=== PATIENT | female | born 1990 | race Caucasian/White ===

== ENCOUNTER → 2019-04-08 | Outpatient (CLI) | payer OTHER ==
--- NOTE | 2019-04-09 10:29 | MM ---
Reason for exam: clinical finding. Last mammogram was performed 6 years and 7 months ago. History: Patient is nulliparous. Family history of breast cancer in maternal grandmother. Right U/S Cancelled VAD Biopsy of both breasts, September 23, 2012. Taking hormonal contraceptives for 1 year. Physical Findings: Nurse did not find any significant physical abnormalities on exam. MG 3D Diag Mammo W/Cad JOSELIN Bilateral CC and MLO view(s) were taken. Prior study comparison: September 18, 2012, CAD bilateral diagnostic mammogram. There are scattered fibroglandular densities. There is a circumscribed left mass of the lower inner quadrant at anterior depth. Benign appearing bilateral calcifications. These results were verbally communicated with the patient and result sheet given to the patient on 04/08/19. ASSESSMENT: Suspicious, BI-RAD 4 RECOMMENDATION: Ultrasound core biopsy of both breasts. Called with mammographic findings and has scheduled an appointment for the patient for 05/15/19 at 1:[address] Good. Biopsy scheduled for 04/27/19. PRELIMINARY REPORT CALLED AND FAXED TO DR. GOOD ON 04/09/19.
--- NOTE | 2019-04-09 10:33 | USB ---
Reason for exam: clinical finding. History: Patient is nulliparous. Family history of breast cancer in maternal grandmother. Right U/S Cancelled VAD Biopsy of both breasts, September 23, 2012. Taking hormonal contraceptives for 1 year. US Breast Limited BILAT Right limited breast ultrasound including focal area of concern, retroareolar and axilla demonstrates a 3.1 x 3.0 x 1.3cm oval, solid, isoechoic, vascular lesion at 12 o'clock interval growth, biopsy recommended and a 1.5 x 1.8 x 0.6cm oval, mixed lesion at 1 o'clock possible fat necrosis, short term follow up recommended. Left limited breast ultrasound including focal area of concern, retroareolar and axilla demonstrates a 2.8 x 2.5 x 0.9cm oval, mixed lesion at 10 o'clock, new, suspicious, biopsy recommended and a 1.2 x 1.0 x 0.7cm node at the axilla. These results were verbally communicated with the patient and result sheet given to the patient on 04/08/19. ASSESSMENT: Suspicious, BI-RAD 4 RECOMMENDATION: Ultrasound core biopsy of both breasts. Called with mammographic findings and has scheduled an appointment for the patient for 05/15/19 at 1:[address] Good. Biopsy scheduled for 04/27/19. PRELIMINARY REPORT CALLED AND FAXED TO DR. GOOD ON 04/09/19.
== END | disposition home or self-care (01) ==
LOC: RADMAMWWP 10:01
PROVIDERS: ATTEND Internal Medicine
DX: N63.20 Unspecified lump in the left breast, unspecified quadrant (principal)
CPT/HCPCS: 77066; 76642; G0279; 77062

== ENCOUNTER → 2019-04-29 | Day surgery (SDC) | payer OTHER ==
[2019-04-29 13:23] VITALS: RESP 16; TEMP 98.9; BMI 49.1
[2019-04-29 14:45] VITALS: BP 121/79; PULSE 89
--- NOTE | 2019-04-29 16:20 | USB ---
EXAMINATION TYPE: US biopsy breast VAD RT DATE OF EXAM: 04/29/2019 CLINICAL HISTORY: R92.8, ABNORMAL MAMMO. TECHNIQUE: Ultrasound guided core biopsy of bilateral breasts. COMPARISON: 10/17/2015 FINDINGS: The procedure of ultrasound guided core biopsy was explained to the patient. Benefits, alternatives, and risks were discussed. An informed consent was then obtained. Timeout was performed. Right breast biopsy: The patient was placed in supine positioning for imaging and for the procedure. The overlying skin was prepped with Betadine and draped in usual sterile fashion. Lidocaine was used as anesthetic into the skin and subcutaneous tissue up to area of concern in the right breast. A erik was made with surgical scalpel. Under ultrasound guidance, a 12-gauge vacuum assisted biopsy gun device was used to obtain 5 core samples. Following this, a biopsy clip was left in lesion. Good hemostasis was obtained with direct pressure. A completely new set up was performed for biopsy of the left breast. Left breast biopsy: The patient was placed in supine positioning for imaging and for the procedure. The overlying skin was prepped with Betadine and draped in usual sterile fashion. Lidocaine was used as anesthetic into the skin and subcutaneous tissue up to area of concern in the left breast. A erik was made with surgical scalpel. Under ultrasound guidance, a 12-gauge vacuum assisted biopsy gun device was used to obtain 5 core samples. Following this, a biopsy clip was left in lesion. The patient tolerated the procedure well without any immediate complication. Good hemostasis was obtained with direct pressure. Discharge instructions were discussed with the patient. Patient was transferred to mammography for post procedure mammogram for clip placement documentation. Mammogram: Ribbon clips are present within the bilateral breasts at biopsy sites. IMPRESSION: 1. Successful bilateral ultrasound-guided core biopsies. Recommendations: 1. Recommendations are pending pathology results of two site biopsy. Pathology Results: Benign A. RIGHT BREAST AT TWELVE O'CLOCK, NEEDLE CORE BIOPSIES: Fibroadipose tissue consistent with intramammary lipoma. B. LEFT BREAST AT TEN O'CLOCK, NEEDLE CORE BIOPSIES: Fibroadipose tissue with fat necrosis. Breast parenchyma is not identified. Recommendation Follow up mammogram of both breasts in 6 months. CAROL
--- NOTE | 2019-04-30 09:10 | MM ---
Reason for exam: additional evaluation requested from abnormal screening. Last mammogram was performed 1 month ago. History: Patient is nulliparous. Family history of breast cancer in maternal grandmother. Right U/S Cancelled VAD Biopsy of both breasts, September 23, 2012. Taking hormonal contraceptives for 1 year. MG Diagnostic Debra BI Wo CAD Bilateral CC and LM view(s) were taken. Prior study comparison: April 08, 2019, bilateral MG 3d diag mammo w/cad JOSELIN. September 18, 2012, CAD bilateral diagnostic mammogram. ASSESSMENT: Post procedure mammogram for marker placement RECOMMENDATION: Ultrasound of both breasts in 6 months. PENDING PATHOLOGY RESULTS.
== END | disposition home or self-care (01) ==
LOC: RADUSWWP 13:01
PROVIDERS: ATTEND Surgery
DX: N60.11 Diffuse cystic mastopathy of right breast (principal); N60.12 Diffuse cystic mastopathy of left breast; Z80.3 Family history of malignant neoplasm of breast
CPT/HCPCS: 19083; 88305; 77066; A4648; J2001

== ENCOUNTER → 2019-05-07 | Outpatient (CLI) | payer OTHER ==
[2019-05-07 12:00] VITALS: BP 146/108; PULSE 118; RESP 18; TEMP 98.3; BMI 49.1
--- NOTE | 2019-05-07 13:01 | P.GSHP ---
History of Present Illness H&P Date: 05/07/19 Chief Complaint: core biopsy of both breast The patient is a 28-year-old white female who presents with bilateral palpable breast masses. She subsequently underwent a bilateral mammogram performed on 730 119. This revealed a circumscribed left breast mass of the lower inner quadrant and anterior depth. Benign calcifications were noted bilaterally. She additionally had an ultrasound of both breast and it was recommended she have bilateral ultrasound-guided core biopsies. The biopsies revealed in the right breast at 12:00 fibroadipose tissue consistent with him 12 mm lipoma. In the left breast at 10:00 fibroadipose tissue consistent with fat necrosis. The avinash ent is able to still fill the areas of palpable change. The patient has left breast ecchymosis. She has no complaints otherwise related to the biopsies. Patient has no history of any trauma to her breast prior to the biopsies. Family history: 1. maternal grandmother: brain cancer 2. maternal aunt: ovarian cancer 3. paternal grandmother: skin cancer Hormonal history: Menarche: 8 G0 periods regular BCP: used to regulate periods, has polycystic ovarian disease hormones: none Surgical history: 1.eye surgery Past Medial History: 1. Polycystic ovarian disease Social history: Smoke: Occasional Alcohol: Occasional Drugs:none - Constitutional Constitutional: Denies chills, Denies fever - EENT Eyes: denies blurred vision, denies pain Ears: deny: decreased hearing, tinnitus Ears, nose, mouth and throat: Denies headache, Denies sore throat - Breasts Breasts: bilateral: as per HPI - Cardiovascular Cardiovascular: Reports high blood pressure - Respiratory Respiratory: Denies cough, Denies 7 - Gastrointestinal Comment: IBSD Gastrointestinal: Denies abdominal pain, Denies diarrhea, Denies nausea, Denies vomiting - Genitourinary (Female) Genitourinary: Denies dysuria, Denies hematuria - Menstruation Comment: on BCP, polycystic ovarian disease Menstruation: Reports period normal - Musculoskeletal Musculoskeletal: Denies myalgias - Integumentary Integumentary: Denies pruritus, Denies rash - Neurological Neurological: Denies numbness, Denies weakness - Psychiatric Psychiatric: Denies anxiety, Denies depression - Endocrine Comment: hypothyroid - Hematologic/Lymphatic Comment: none - Allergic/Immunologic Allergic/Immunologic: Reports seasonal allergies Past Medical History Past Medical History: Hypertension, Thyroid Disorder Additional Past Medical History / Comment(s): POLYCYSTIC OVARIAN SYNDROME, HX OF RECTAL BLEEDING., STATES HX OF MRSA 2009 ON CHEEK,LEG AND BREAST., HX OF C-DIFF (OCT 2012). History of Any Multi-Drug Resistant Organisms: None Reported, MRSA Date of last positivie culture/infection: 2008 MDRO Source:: 2008 Additional Past Surgical History / Comment(s): JOSELIN EYE SURGERY AT 9 MONTHS AND 9 YRS OLD, 2014 Past Anesthesia/Blood Transfusion Reactions: No Reported Reaction Past Psychological History: Anxiety Additional Psychological History / Comment(s): history of anxiety, not current Smoking Status: Former smoker Past Alcohol Use History: Occasional Additional Past Alcohol Use History / Comment(s): SMOKING 1-2 CIGARETTES PER DAY-TRYING TO QUIT. Past Drug Use History: None Reported - Past Family History Father Family Medical History: Hypertension Additional Family Medical History / Comment(s): Grandmother skin CA Medications and Allergies Home Medications Medication Instructions Recorded Confirmed Type Levothyroxine Sodium [Levoxyl] 125 mcg PO DAILY 04/12/15 05/07/19 History metFORMIN HCL [Glucophage] 1,000 mg PO BID 04/12/15 05/07/19 History Tri Previfem ( Control) 1 tab PO DAILY 06/10/15 05/07/19 History Lisinopril [Zestril] 5 mg PO DAILY 04/14/19 05/07/19 History Allergies Allergy/AdvReac Type Severity Reaction Status Date / Time clindamycin Allergy C-DIFF Verified 05/07/19 12:01 vancomycin Allergy ITCHING, Verified 05/07/19 12:01 HIVES, RED SKIN Surgical - Exam Vital Signs Temp Pulse Resp BP Pulse Ox 98.3 F 118 H 18 146/108 96 05/07/19 11:57 05/07/19 11:57 05/07/19 11:57 05/07/19 11:57 05/07/19 11:57 BMI 49.1 - General well developed, well nourished, no distress - Eyes normal ocular movement - ENT no hearing loss, no congestion - Neck no masses, trachea midline - Respiratory normal respiratory effort, clear to auscultation - Cardiovascular Rhythm: regular Heart Sounds: normal: S1, S2 - Abdomen Abdomen: soft, non tender, no guarding, no rigid, no rebound - Integumentary normal turgor - Neurologic no disoriented, no combative - Musculoskeletal normal gait, normal posture - Psychiatric oriented to time, oriented to person, oriented to place, speech is normal, memory intact breast exam: Right breast: Multiple positional exam increased nodularity at site of biopsy consistent with a lipoma in the upper outer quadrant area of the breast fibrocystic changes Right axilla: No adenopathy of concern Left breast: Multiple positional exam fibrocystic changes, at the 8 o'clock position there is an area of increased nodularity. Biopsy of this area did not reveal any breast tissue but did show some changes consistent with fat necrosis Left axilla: No adenopathy of concern Results Mammogram and ultrasound reviewed with radiology Assessment and Plan Assessment: Impression: Bilateral palpable breast changes Ultrasound abnormalities bilateral Hypertension obesity Polycystic ovarian disease The patient has bilateral palpable breast changes. She understands that the core biopsy results were benign and by believed to correspond to the palpable abnormalities. However the lipoma has increased in size at times it is painful and she wishes this to be excised. The lesion on the left is Its presentation and is painful. This is changed in size as well. She wishes this to be excised as well. Again she understands that these are not cancer these are not pre-cancer that they are causing her anxiety. The risks and benefits of the procedure including bleeding and infection reaction to the anesthetic had been discussed she understands and wishes to proceed and this will be scheduled in the near future. Plan: 1. excision of bilateral palpable breast lesions 2. repeat bilateral ultrasound in 6 months to follow the other ultrasound changes 3. HTN 4. medical managment of medical conditions CC: Dr. Javier Jc
== END | disposition home or self-care (01) ==
LOC: WWCWWP 11:51
PROVIDERS: ATTEND Surgery
DX: Z53.9 Procedure and treatment not carried out, unspecified reason (principal)

== ENCOUNTER → 2019-06-25 | Outpatient (CLI) | payer OTHER ==
[2019-06-25 13:41] VITALS: BP 143/94; PULSE 107; RESP 20; TEMP 99.1; BMI 49.1
--- NOTE | 2019-06-25 13:50 | P.PN ---
Subjective Progress Note Date: 06/25/19 Principal diagnosis: bilateral breast masses The patient is a 28-year-old white female who presents with bilateral palpable breast masses. She subsequently underwent a bilateral mammogram performed on 730 119. This revealed a circumscribed left breast mass of the lower inner quadrant and anterior depth. Benign calcifications were noted bilaterally. She additionally had an ultrasound of both breast and it was recommended she have bilateral ultrasound-guided core biopsies. The biopsies revealed in the right breast at 12:00 fibroadipose tissue consistent with him 12 mm lipoma. In the left breast at 10:00 fibroadipose tissue consistent with fat necrosis. The patient is able to still fill the areas of palpable change. The patient has left breast ecchymosis. She has no complaints otherwise related to the biopsies. Patient has no history of any trauma to her breast prior to the biopsies. Family history: 1. maternal grandmother: brain cancer 2. maternal aunt: ovarian cancer, of this 3. paternal grandmother: skin cancer Hormonal history: Menarche: 8 G0 periods regular BCP: used to regulate periods, has polycystic ovarian disease hormones: none Surgical history: 1.eye surgery Past Medial History: 1. Polycystic ovarian disease Social history: Smoke: Occasional Alcohol: Occasional Drugs:none - Constitutional Constitutional: Denies chills, Denies fever - EENT Eyes: denies blurred vision, denies pain Ears: deny: decreased hearing, tinnitus Ears, nose, mouth and throat: Denies headache, Denies sore throat - Breasts Breasts: bilateral: as per HPI - Cardiovascular Cardiovascular: Reports high blood pressure - Respiratory Respiratory: Denies cough, Denies 7 - Gastrointestinal Comment: IBSD Gastrointestinal: Denies abdominal pain, Denies diarrhea, Denies nausea, Denies vomiting - Genitourinary (Female) Genitourinary: Denies dysuria, Denies hematuria - Menstruation Comment: on BCP, polycystic ovarian disease Menstruation: Reports period normal - Musculoskeletal Musculoskeletal: Denies myalgias - Integumentary Integumentary: Denies pruritus, Denies rash - Neurological Neurological: Denies numbness, Denies weakness - Psychiatric Psychiatric: Denies anxiety, Denies depression - Endocrine Comment: hypothyroid - Hematologic/Lymphatic Comment: none - Allergic/Immunologic Allergic/Immunologic: Reports seasonal allergies Past Medical History Past Medical History: Hypertension, Thyroid Disorder Additional Past Medical History / Comment(s): POLYCYSTIC OVARIAN SYNDROME, HX OF RECTAL BLEEDING., STATES HX OF MRSA 2009 ON CHEEK,LEG AND BREAST., HX OF C-DIFF (OCT 2012). History of Any Multi-Drug Resistant Organisms: None Reported, MRSA Date of last positivie culture/infection: 2008 MDRO Source:: 2008 Additional Past Surgical History / Comment(s): JOSELIN EYE SURGERY AT 8 MONTHS AND 9 YRS OLD, 2014 Past Anesthesia/Blood Transfusion Reactions: No Reported Reaction Past Psychological History: Anxiety Additional Psychological History / Comment(s): history of anxiety, not current Smoking Status: Former smoker Past Alcohol Use History: Occasional Additional Past Alcohol Use History / Comment(s): SMOKING 1-2 CIGARETTES PER DAY-TRYING TO QUIT. Past Drug Use History: None Reported Objective - Vital Signs Vital signs: Vital Signs Temp 99.1 F 06/25/19 13:37 Pulse 107 H 06/25/19 13:37 Resp 20 06/25/19 13:37 BP 143/94 06/25/19 13:37 Pulse Ox 96 06/25/19 13:37 Intake & Output 06/24/19 06/25/19 06/25/19 18:59 06:59 18:59 Weight 117.934 kg - Exam BMI 49.1 - Constitutional Constitutional Comment(s): BMI 49.1 General appearance: Present: morbidly obese - EENT Eyes: Present: EOMI ENT: Present: hearing grossly normal - Neck Neck: Present: normal ROM - Respiratory Respiratory: bilateral: CTA - Cardiovascular Rhythm: regular Heart sounds: normal: S1, S2 - Gastrointestinal General gastrointestinal: Present: soft - Integumentary Integumentary: Present: normal turgor - Musculoskeletal Musculoskeletal: Present: gait normal - Psychiatric Psychiatric: Present: A&O x's 3, appropriate affect, intact judgment & insight - Additional findings Additional findings: Breast examination: Right breast: Multi-positional exam increased nodularity at site of biopsy consistent with a lipoma, in the upper outer quadrant of the breast fibrocystic changes Right axilla: No adenopathy of concern Left breast: Multi-positional exam fibrocystic changes, bradycardic position and area of increased nodularity, biopsy of this area did not reveal breast tissue but did show some changes consistent with fat necrosis Left axilla: No adenopathy of concern bilateral nipple piercing Assessment and Plan Assessment: Impression: 1. Bilateral palpable breast changes 2. Ultrasound abnormalities bilateral 3. Hypertension 4. Obesity 5. Polycystic ovarian disease The patient has bilateral palpable breast changes. She understands of the core biopsy results were benign and believed to correspond to the palpable abnormality maladies. However the lipoma has increased in size at times is painful to wishes this to be excised. The lesion on the left is painful as well. This is also changed in size. Again she understands these and I cancer that these are not precancer and they are however causing her anxiety. The risks and benefits of the procedure including bleeding and infection possible reaction to the anesthetic were discussed with the patient she understands and wishes to proceeds. Plan: 1. Excision of bilateral palpable breast lesions 2. Repeat bilateral ultrasound in 6 months to follow other ultrasound changes 2. Hypertension/ medical management CC: Dr. Jc
== END | disposition home or self-care (01) ==
LOC: WWCWWP 13:19
PROVIDERS: ATTEND Surgery
DX: Z53.9 Procedure and treatment not carried out, unspecified reason (principal)

== ENCOUNTER 2019-07-07 07:24 | Day surgery (SDC) | payer OTHER ==
[2019-07-02 12:00] VITALS: BMI 49.1
[~2019-07-07 07:24] MED LIST: DEXAMETHASONE SOD PHOSPHATE 10 MG/ML 1 ML VIAL IV ONE; HEPARIN SODIUM,PORCINE 5,000 UNIT/ML 1 ML VIAL SQ ONE; LACTATED RINGERS 1,000 ML IV SCH; LIDOCAINE 1% 20 ML VIAL (10MG/ML) FOR IV START INTRADERMA PRN; MIDAZOLAM 2 MG/2 ML VIAL IV PRN; ONDANSETRON 4 MG/2 ML VIAL IVP ONE; SCOPOLAMINE 1.5MG/72HR PATCH TRANSDERM ONE
[2019-07-07 08:23] LABS: Glucose,Whole Blood 138 mg/dL (75-99)
[2019-07-07] MEDS ORDERED: MIDAZOLAM 2 MG/2 ML VIAL ONE (08:34)
[2019-07-07] MEDS ORDERED: fentaNYL (PF) 50 MCG/ML 2 ML AMP ONE (08:34)
[2019-07-07] MEDS ORDERED: LIDOCAINE 1% INJ 10MG/ML (20 ML MDV) ONE (08:34)
[2019-07-07] MEDS ORDERED: SUCCINYLCHOLINE CHLORIDE 100 MG/5 ML SYR IV ONE (08:34)
[2019-07-07] MEDS ORDERED: PROPOFOL 10 MG/ML 20 ML VIAL IV ONE (08:34)
[2019-07-07] MEDS ORDERED: HEPARIN SODIUM,PORCINE 5,000 UNIT/ML 1 ML VIAL SQ ONE (08:53)
[2019-07-07] MEDS ORDERED: LIDOCAINE (PF) 10 MG/ML 2 ML VIAL SQ ONE (09:06)
--- NOTE | 2019-07-07 09:40 | P.OP ---
Date of Procedure: 07/07/19 Preoperative Diagnosis: Symptomatic Masses right and left breast core biopsy proven benign, right breast lipoma, left breast fat necrosis causing anxiety for the patient Postoperative Diagnosis: Same Procedure(s) Performed: Excisional biopsy bilateral palpable masses in the breast Anesthesia: RASHEED Surgeon: Peyton Good Estimated Blood Loss (ml): 5 IV fluids (ml): 600 Pathology: other (Bilateral breast tissue) Condition: stable Disposition: same day Indications for Procedure: Symptomatic bilateral palpable breast masses, increased in size Operative Findings: Lipoma right breast, dense probable fat necrosis left breast Description of Procedure: The patient was taken to the operating room and following induction of anesthesia the right and left breast were prepped and draped in a sterile fashion. The left breast was approached initially. A small incision was made over the palpable abnormality and carried down around the area. The tissue excised was approximately 6 cm x 6 cm, palpation revealed the density to this and an additional 5 x 5 cm area of tissue was excised. The palpable mass was believed to be in the specimen. This is most likely consistent with fat necrosis, and lobulated breast tissue. The wound was well irrigated. The deep tissues were closed using 3-0 Vicryl suture. The skin was closed using 4-0 Monocryl. The right breast was approached. An incision over the palpable abnormality was made. An encapsulated lipomatous like lesion was removed. This lesion was approximately 3 cm x 3 cm in size. Following this the wound was well irrigated. The skin was closed using a 4-0 Monocryl. This was done after being sure that hemostasis was attained using electrocautery device. The specimens were painted for orientation. All instrument and sponge counts were correct at the end of the case. The patient tolerated the procedure in stable condition.
--- NOTE | 2019-07-07 09:42 | P.DS ---
Providers Attending physician: Peyton Good Primary care physician: Javier Jc Plan - Discharge Summary Discharge Rx Participant: Yes New Discharge Prescriptions: No Action metFORMIN HCL [Glucophage] 1,000 mg PO HS Levothyroxine Sodium [Levoxyl] 125 mcg PO QAM Tri Previfem ( Control) 1 tab PO DAILY Lisinopril [Zestril] 5 mg PO QAM Discharge Medication List Levothyroxine Sodium [Levoxyl] 125 mcg PO QAM 04/12/15 [History] metFORMIN HCL [Glucophage] 1,000 mg PO HS 04/12/15 [History] Tri Previfem ( Control) 1 tab PO DAILY 06/10/15 [History] Lisinopril [Zestril] 5 mg PO QAM 04/14/19 [History] Follow up Appointment(s)/Referral(s): Peyton Good MD [STAFF PHYSICIAN] - 1 Week Activity/Diet/Wound Care/Special Instructions: Do not drive today Patient may shower after 48 hours Wear support bra Until seen by Dr. Oswald Discharge Disposition: HOME SELF-CARE
[2019-07-07 10:00] VITALS: TEMP 97.1
[2019-07-07] MEDS: HYDROmorphone 0.5 MG/0.5 ML SYRINGE IVP PRN ×2 (10:12→10:31)
[2019-07-07] MEDS ORDERED: SODIUM CHLORIDE 0.9% 1,000 ML IV ONE ×2 (10:20)
[2019-07-07 10:34] VITALS: RESP 18
[2019-07-07 11:25] VITALS: BP 129/81; PULSE 100
== END 2019-07-07 11:36 | disposition home or self-care (01) ==
LOC: OR 07:24
PROVIDERS: ATTEND Surgery
DX: D17.39 Benign lipomatous neoplasm of skin and subcutaneous tissue of other sites (principal); N64.1 Fat necrosis of breast; I10 Essential (primary) hypertension; E07.9 Disorder of thyroid, unspecified; E28.2 Polycystic ovarian syndrome; F31.9 Bipolar disorder, unspecified; F17.210 Nicotine dependence, cigarettes, uncomplicated; Z86.14 Personal history of Methicillin resistant Staphylococcus aureus infection; Z86.19 Personal history of other infectious and parasitic diseases; E66.01 Morbid (severe) obesity due to excess calories; Z68.42 Body mass index [BMI] 45.0-49.9, adult; Z80.41 Family history of malignant neoplasm of ovary; Z80.8 Family history of malignant neoplasm of other organs or systems; Z79.84 Long term (current) use of oral hypoglycemic drugs; Z79.3 Long term (current) use of hormonal contraceptives; Z79.890 Hormone replacement therapy; Z79.899 Other long term (current) drug therapy; Z88.1 Allergy status to other antibiotic agents
CPT/HCPCS: 94660; 81025; 88305; 19120; J2250; J2001 ×2; J1644; J1100; J2405; J3010; J0330; J2704; J1170

== ENCOUNTER 2021-06-29 20:56 | Emergency (ER) | payer OTHER ==
[2021-06-29 21:02] VITALS: BP 101/70; PULSE 83; RESP 20; TEMP 97.9
--- NOTE | 2021-06-29 22:13 | ED ---
General Adult HPI - General Chief complaint: GI Bleed Stated complaint: Rectal Bleeding Time Seen by Provider: 06/29/21 21:53 Source: patient, family, RN notes reviewed, old records reviewed Mode of arrival: ambulatory Limitations: no limitations - History of Present Illness Initial comments: This is a well-appearing 30-year-old female that presents to the emergency room complaining of one episode of bloody diarrhea at 2:00 today. She states that she could feel pressure in her rectum 5 out of 10 pain. The pain is gone at this time. She states that she has had this happen 7 years ago and she seen Dr. Pedroza and had an colonoscopy and was told that she had a rectal fissure. She denies any abdominal pain nausea, vomiting or constipation. She has had a history of C. diff, hypertension, hypothyroidism and polycystic ovarian syndrome. Patient is a nonsmoker. -: hour(s) (8 hours ago) Severity scale (1-10): 0 Improves with: none Worsens with: none Associated Symptoms: denies other symptoms Treatments Prior to Arrival: none - Related Data Home Medications Medication Instructions Recorded Confirmed Levothyroxine Sodium [Levoxyl] 125 mcg PO QAM 04/12/15 07/02/19 metFORMIN HCL [Glucophage] 1,000 mg PO HS 04/12/15 07/02/19 Tri Previfem ( Control) 1 tab PO DAILY 06/10/15 07/02/19 lisinopriL [Zestril] 5 mg PO QAM 04/14/19 07/02/19 Allergies Allergy/AdvReac Type Severity Reaction Status Date / Time clindamycin Allergy C-DIFF Verified 06/29/21 21:03 vancomycin Allergy ITCHING, Verified 06/29/21 21:03 HIVES, RED SKIN Review of Systems ROS Statement: Those systems with pertinent positive or pertinent negative responses have been documented in the HPI. ROS Other: All systems not noted in ROS Statement are negative. Past Medical History Past Medical History: Hypertension, Thyroid Disorder Additional Past Medical History / Comment(s): POLYCYSTIC OVARIAN SYNDROME, HX OF RECTAL BLEEDING., STATES HX OF MRSA 2009 ON CHEEK,LEG AND BREAST., HX OF C-DIFF (OCT 2012). History of Any Multi-Drug Resistant Organisms: C-DIFF, MRSA Date of last positivie culture/infection: leg MDRO Source:: 2008 Additional Past Surgical History / Comment(s): JOSELIN EYE SURGERY AT 9 MONTHS AND 9 YRS OLD, 2014 Past Anesthesia/Blood Transfusion Reactions: No Reported Reaction Past Psychological History: Anxiety Smoking Status: Former smoker Past Alcohol Use History: Occasional Past Drug Use History: None Reported - Past Family History Father Family Medical History: Hypertension Additional Family Medical History / Comment(s): Grandmother skin [place] General Exam Limitations: no limitations General appearance: alert, in no apparent distress Head exam: Present: atraumatic, normocephalic, normal inspection Eye exam: Present: normal appearance, PERRL, EOMI. Absent: scleral icterus, conjunctival injection, periorbital swelling ENT exam: Present: normal exam, normal oropharynx, mucous membranes moist Neck exam: Present: normal inspection, full ROM. Absent: tenderness, meningismus, lymphadenopathy Respiratory exam: Present: normal lung sounds bilaterally. Absent: respiratory distress, wheezes, rales, rhonchi, stridor Cardiovascular Exam: Present: regular rate, normal rhythm, normal heart sounds. Absent: systolic murmur, diastolic murmur, rubs, gallop, clicks GI/Abdominal exam: Present: soft, normal bowel sounds. Absent: distended, tenderness, guarding, rebound, rigid, mass Rectal exam: Present: normal inspection, normal rectal tone. Absent: black stool, bloody stool, fecal impaction, hemorrhoids, mass, tenderness Extremities exam: Present: normal inspection, full ROM, normal capillary refill. Absent: tenderness, pedal edema, joint swelling, calf tenderness Back exam: Present: normal inspection, full ROM. Absent: tenderness, CVA tenderness (R), CVA tenderness (L), rash noted Neurological exam: Present: alert, oriented X3. Absent: motor sensory deficit Psychiatric exam: Present: normal affect, normal mood Skin exam: Present: warm, dry, intact, normal color. Absent: rash, cyanosis, diaphoretic Course Vital Signs 06/29/21 20:57 Temperature 97.9 F Pulse Rate 83 Respiratory 20 Rate Blood Pressure 101/70 O2 Sat by Pulse 100 Oximetry Medical Decision Making - Medical Decision Making Well-appearing female with stable vital signs. She has a history of having a rectal fissure in the past. She had one episode of bloody diarrhea, red in co valentin at 2:00 today. She has not had any subsequent bleeding. Her abdomen is soft and nontender. She has good rectal tone. Occult blood from recturm was sent and negative. She'll be directed to follow up with her primary care doctor and return with any new or worsening symptoms. Case discussed with Dr. Galaviz. - Lab Data Lab Results 06/29/21 Range/Units 22:40 Stool Occult Blood Negative (Negative) Disposition Clinical Impression: Rectal bleeding Disposition: HOME SELF-CARE Condition: Good Instructions (If sedation given, give patient instructions): Rectal Bleeding (ED) Additional Instructions: Return to the emergency room with any increase in bleeding, abdominal or rectal pain. Follow-up with her clinical account liaison and/or your primary care doctor next week. Is patient prescribed a controlled substance at d/c from ED?: No Referrals: Cuca Cantu MD [Primary Care Provider] - 1-2 days Time of Disposition: 22:12
== END 2021-06-29 22:43 | disposition home or self-care (01) ==
LOC: EC 20:56
DX: K62.5 Hemorrhage of anus and rectum (principal); I10 Essential (primary) hypertension; E07.9 Disorder of thyroid, unspecified; F41.9 Anxiety disorder, unspecified; Z88.1 Allergy status to other antibiotic agents; Z87.891 Personal history of nicotine dependence
CPT/HCPCS: 36415; 82272; 99284

== ENCOUNTER 2023-05-06 11:09 | Emergency (ER) | payer OTHER ==
[2023-05-06 11:17] VITALS: RESP 18; TEMP 99
[2023-05-06] MEDS ORDERED: SODIUM CHLORIDE 0.9% 2,000 ML IV STA (11:19)
[2023-05-06] MEDS ORDERED: KETOROLAC 15 MG/ML 1 ML VIAL IVP STA ×2 (11:25→12:46)
[2023-05-06] MEDS ORDERED: ONDANSETRON 4 MG/2 ML VIAL IVP STA (11:25)
[2023-05-06] MEDS ORDERED: DEXAMETHASONE SOD PHOSPHATE 10 MG/ML 1 ML VIAL IVP STA (11:25)
[2023-05-06 11:43] LABS: Basophils % (A) 0 %; Eosinophils # (A) 0.1 k/uL (0-0.7); Eosinophils % (A) 1 %; HGB 13.8 gm/dL (11.4-16.0); Lymphocytes # (A) 1.5 k/uL (1.0-4.8); Lymphocytes % (A) 12 %; MCH 30.3 pg (25.0-35.0); MCHC 34.4 g/dL (31.0-37.0); Mean Platelet Volume 7.7; Monocytes # (A) 0.3 k/uL (0-1.0); Monocytes % (A) 2 %; Neutrophils % (A) 84 %; Platelet Count 306 k/uL (150-450); RBC 4.54 m/uL (3.80-5.40); RDW 12.6 % (11.5-15.5); WBC 11.9 k/uL (3.8-10.6)
--- NOTE | 2023-05-06 11:43 | ED ---
Nausea/Vomiting/Diarrhea HPI - General Chief complaint: Nausea/Vomiting/Diarrhea Stated complaint: Dehydration Time Seen by Provider: 05/06/23 11:19 Source: patient, RN notes reviewed Mode of arrival: ambulatory Limitations: no limitations - History of Present Illness Initial comments: This is a 32-year-old female who presents to the emergency department for nausea and vomiting. States that the symptoms started 2.5 weeks ago after beginning Ozempic. She is concerned that she is becoming dehydrated, as she is unable to keep anything down. Denies any associated abdominal pain, aside from mild discomfort as a result of all of the nausea and vomiting. Yesterday she was doing housework, when she fell backwards and her head went through a wall. She since had a severe headache to the back of the head. Denies any visual changes or sustaining any loss of consciousness. Denies any fevers, chills, sore throat, cough, dyspnea, chest pain, palpitations, diarrhea, or back pain. MD complaint: nausea, vomiting - Related Data Home Medications Medication Instructions Recorded Confirmed Levothyroxine Sodium [Levoxyl] 125 mcg PO QAM 04/12/15 07/02/19 metFORMIN HCL [Glucophage] 1,000 mg PO HS 04/12/15 07/02/19 Tri Previfem ( Control) 1 tab PO DAILY 06/10/15 07/02/19 lisinopriL [Zestril] 5 mg PO QAM 04/14/19 07/02/19 Previous Rx's Medication Instructions Recorded Ondansetron Odt [Zofran Odt] 4 mg PO Q8HR PRN #30 tab 05/06/23 Allergies Allergy/AdvReac Type Severity Reaction Status Date / Time clindamycin Allergy C-DIFF Verified 05/06/23 11:12 vancomycin Allergy ITCHING, Verified 05/06/23 11:12 HIVES, RED SKIN Review of Systems ROS Statement: Those systems with pertinent positive or pertinent negative responses have been documented in the HPI. ROS Other: All systems not noted in ROS Statement are negative. Past Medical History Past Medical History: Hypertension, Thyroid Disorder Additional Past Medical History / Comment(s): POLYCYSTIC OVARIAN SYNDROME, HX OF RECTAL BLEEDING., STATES HX OF MRSA 2009 ON CHEEK,LEG AND BREAST., HX OF C-DIFF (OCT 2012). History of Any Multi-Drug Resistant Organisms: C-DIFF, MRSA Date of last positivie culture/infection: leg MDRO Source:: 2008 Additional Past Surgical History / Comment(s): JOSELIN EYE SURGERY AT 9 MONTHS AND 9 YRS OLD, 2014 Past Anesthesia/Blood Transfusion Reactions: No Reported Reaction Past Psychological History: Anxiety Smoking Status: Former smoker Past Alcohol Use History: Occasional Past Drug Use History: None Reported - Past Family History Father Family Medical History: Hypertension Additional Family Medical History / Comment(s): Grandmother skin [place] General Exam Limitations: no limitations General appearance: alert, in no apparent distress Head exam: Present: atraumatic, normocephalic, normal inspection Eye exam: Present: normal appearance, PERRL, EOMI. Absent: scleral icterus, conjunctival injection, periorbital swelling Respiratory exam: Present: normal lung sounds bilaterally. Absent: respiratory distress, wheezes, rales, rhonchi, stridor Cardiovascular Exam: Present: regular rate, normal rhythm, normal heart sounds. Absent: systolic murmur, diastolic murmur, rubs, gallop, clicks GI/Abdominal exam: Present: soft, normal bowel sounds. Absent: distended, tenderness, guarding, rebound, rigid Neurological exam: Present: alert, oriented X3, CN II-XII intact Psychiatric exam: Present: normal affect, normal mood Skin exam: Present: warm, dry, intact, normal color. Absent: rash Course Vital Signs 05/06/23 05/06/23 05/06/23 11:13 13:10 14:22 Temperature 99.0 F Pulse Rate 110 H 95 93 Respiratory 18 18 18 Rate Blood Pressure 161/107 153/82 152/101 O2 Sat by Pulse 94 L 95 94 L Oximetry Medical Decision Making - Medical Decision Making This is a 32-year-old female who presents to the emergency department for nausea, vomiting, and a head injury. Was pt. sent in by a medical professional or institution? @ -No Did you speak to anyone other than the patient for history? @ -No Did you review nursing and triage notes? @ -Yes, and I agree, it is accurate with regards to the patient's symptoms. Were old charts reviewed? @ -No Differential Diagnosis? @ -Differential Nausea and Vomiting: Gastroenteritis, cholecystitis, appendicitis, pancreatitis, migraine, benign positional vertigo, food borne illness, pyelonephritis, irritable bowel syndrome, influenza, Covid, GERD, incarcerated hernia, intestinal obstruction, this is not meant to be an all-inclusive list. EKG interpreted by me (3pts min.)? @ -Not obtained X-rays interpreted by me (1pt min.)? @ -Not obtained CT interpreted by me (1pt min.)? @ -Computed tomography scan of the brain and c-spine obtained. My interpretation identifies no evidence of an acute intracranial hemorrhage, skull fracture, or cervical spine fracture. U/S interpreted by me (1pt. min.)? @ -Not obtained What testing was considered but not performed? (CT, X-rays, U/S, labs)? Why? @ -None What meds were considered but not given? Why? @ -None Did you discuss the management of the patient with other professionals? @ -No Did you reconcile home meds? @ -No Was smoking cessation discussed for >3mins.? @ -No Was critical care preformed (if so, how long)? @ -No Were there social determinants of health that impacted care today? How? (Homelessness, low income, unemployed, alcoholism, drug addiction, transportation, low edu. Level, literacy, decrease access to med. care, half-way, rehab)? @ -No Was there de-escalation of care discussed even if they declined? (Discuss DNR or withdrawal of care, Hospice)? @ -No What co-morbidities impacted this encounter? (DM, HTN, Smoking, COPD, CAD, Cancer, CVA, Hep., AIDS, mental health diagnosis, sleep apnea, morbid obesity)? @ -Morbid obesity Was patient admitted / discharged? @ -Discharged. Lab work obtained revealing minor leukocytosis, which is likely reactive. Lab work is also consistent with dehydration based on the mild MONIK. Lab work was otherwise nonactionable. COVID, influenza, and RSV testing were negative. CT scan of the brain obtained given the head injury with severe headache. This revealed no acute process. Symptoms well controlled in the emergency department and she was tolerating fluid intake. Patient requested discharge home and said that she was very hungry. Prescription for Zofran pr ovided with dosing instructions reviewed. Advised she slowly advance her diet as tolerated and remain well hydrated. Undiagnosed new problem with uncertain prognosis? @ -None Drug Therapy requiring intensive monitoring for toxicity (Heparin, Nitro, Insulin, Cardizem)? @ -None Were any procedures done? @ -None Diagnosis/symptom? @ -Nausea and vomiting, MONIK, head injury Acute, or Chronic, or Acute on Chronic? @ -Acute Uncomplicated (without systemic symptoms) or Complicated (systemic symptoms)? @ -Uncomplicated Side effects of treatment? @ -None Exacerbation, Progression, or Severe Exacerbation] @ -Not applicable Poses a threat to life or bodily function? @ -No Return precautions reviewed in depth, the patient is instructed to return to the emergency department with any new, worsening, or concerning symptoms. Patient verbalized understanding. This case was discussed in detail with the attending ED physician, Dr. Galaviz Presentation, findings, and treatment plan discussed in detail as well. - Lab Data Result diagrams: 05/06/23 11:30 05/06/23 11:30 Lab Results 05/06/23 05/06/23 05/06/23 Range/Units 11:30 11:30 11:30 WBC 11.9 H (3.8-10.6) k/uL RBC 4.54 (3.80-5.40) m/uL Hgb 13.8 (11.4-16.0) gm/dL Hct 40.0 (34.0-46.0) % MCV 88.0 (80.0-100.0) fL MCH 30.3 (25.0-35.0) pg MCHC 34.4 (31.0-37.0) g/dL RDW 12.6 (11.5-15.5) % Plt Count 306 (150-450) k/uL MPV 7.7 Neutrophils % 84 % Lymphocytes % 12 % Monocytes % 2 % Eosinophils % 1 % Basophils % 0 % Neutrophils # 10.0 H (1.3-7.7) k/uL Lymphocytes # 1.5 (1.0-4.8) k/uL Monocytes # 0.3 (0-1.0) k/uL Eosinophils # 0.1 (0-0.7) k/uL Basophils # 0.0 (0-0.2) k/uL Sodium 136 L (137-145) mmol/L Potassium 4.3 (3.5-5.1) mmol/L Chloride 91 L (98-107) mmol/L Carbon Dioxide 35 H (22-30) mmol/L Anion Gap 10 mmol/L BUN 21 H (7-17) mg/dL Creatinine 1.62 H (0.52-1.04) mg/dL Est GFR (CKD-EPI)AfAm 48 (>60 ml/min/1.73 sqM) Est GFR (CKD-EPI)NonAf 42 (>60 ml/min/1.73 sqM) Glucose 188 H (74-99) mg/dL Calcium 9.8 (8.4-10.2) mg/dL Total Bilirubin 0.6 (0.2-1.3) mg/dL AST 36 (14-36) U/L ALT 28 (4-34) U/L Alkaline Phosphatase 69 (38-126) U/L Total Protein 8.1 (6.3-8.2) g/dL Albumin 4.6 (3.5-5.0) g/dL Amylase 65 (30-110) U/L Lipase 229 (23-300) U/L HCG, Qual Not Detected Urine Color Yellow Urine Appearance Cloudy H (Clear) Urine pH 6.5 (5.0-8.0) Ur Specific [place] 1.017 (1.001-1.035) Urine Protein Trace H (Negative) Urine Glucose (UA) 3+ H (Negative) Urine Ketones Trace H (Negative) Urine Blood Negative (Negative) Urine Nitrite Negative (Negative) Urine Bilirubin Negative (Negative) Urine Urobilinogen <2.0 (<2.0) mg/dL Ur Leukocyte Esterase Negative (Negative) Urine RBC 4 (0-5) /hpf Urine WBC 2 (0-5) /hpf Ur Squamous Epith Cells 25 H (0-4) /hpf Urine Mucus Rare H (None) /hpf Urine Opiates Screen (NotDetected) Ur Oxycodone Screen (NotDetected) Urine Methadone Screen (NotDetected) Ur Propoxyphene Screen (NotDetected) Ur Barbiturates Screen (NotDetected) U Tricyclic Antidepress (NotDetected) Ur Phencyclidine Scrn (NotDetected) Ur Amphetamines Screen (NotDetected) U Methamphetamines Scrn (NotDetected) U Benzodiazepines Scrn (NotDetected) Urine Cocaine Screen (NotDetected) U Marijuana (THC) Screen (NotDetected) Influenza Type A (PCR) (Not Detectd) Influenza Type B (PCR) (Not Detectd) RSV (PCR) (Not Detectd) SARS-CoV-2 (PCR) (Not Detectd) 05/06/23 05/06/23 Range/Units 11:30 11:30 WBC (3.8-10.6) k/uL RBC (3.80-5.40) m/uL Hgb (11.4-16.0) gm/dL Hct (34.0-46.0) % MCV (80.0-100.0) fL MCH (25.0-35.0) pg MCHC (31.0-37.0) g/dL RDW (11.5-15.5) % Plt Count (150-450) k/uL MPV Neutrophils % % Lymphocytes % % Monocytes % % Eosinophils % % Basophils % % Neutrophils # (1.3-7.7) k/uL Lymphocytes # (1.0-4.8) k/uL Monocytes # (0-1.0) k/uL Eosinophils # (0-0.7) k/uL Basophils # (0-0.2) k/uL Sodium (137-145) mmol/L Potassium (3.5-5.1) mmol/L Chloride (98-107) mmol/L Carbon Dioxide (22-30) mmol/L Anion Gap mmol/L BUN (7-17) mg/dL Creatinine (0.52-1.04) mg/dL Est GFR (CKD-EPI)AfAm (>60 ml/min/1.73 sqM) Est GFR (CKD-EPI)NonAf (>60 ml/min/1.73 sqM) Glucose (74-99) mg/dL Calcium (8.4-10.2) mg/dL Total Bilirubin (0.2-1.3) mg/dL AST (14-36) U/L ALT (4-34) U/L Alkaline Phosphatase (38-126) U/L Total Protein (6.3-8.2) g/dL Albumin (3.5-5.0) g/dL Amylase (30-110) U/L Lipase (23-300) U/L HCG, Qual Urine Color Urine Appearance (Clear) Urine pH (5.0-8.0) Ur Specific [place] (1.001-1.035) Urine Protein (Negative) Urine Glucose (UA) (Negative) Urine Ketones (Negative) Urine Blood (Negative) Urine Nitrite (Negative) Urine Bilirubin (Negative) Urine Urobilinogen (<2.0) mg/dL Ur Leukocyte Esterase (Negative) Urine RBC (0-5) /hpf Urine WBC (0-5) /hpf Ur Squamous Epith Cells (0-4) /hpf Urine Mucus (None) /hpf Urine Opiates Screen Detected H (NotDetected) Ur Oxycodone Screen Detected H (NotDetected) Urine Methadone Screen Not Detected (NotDetected) Ur Propoxyphene Screen Not Detected (NotDetected) Ur Barbiturates Screen Not Detected (NotDetected) U Tricyclic Antidepress Not Detected (NotDetected) Ur Phencyclidine Scrn Not Detected (NotDetected) Ur Amphetamines Screen Not Detected (NotDetected) U Methamphetamines Scrn Not Detected (NotDetected) U Benzodiazepines Scrn Not Detected (NotDetected) Urine Cocaine Screen Not Detected (NotDetected) U Marijuana (THC) Screen Detected H (NotDetected) Influenza Type A (PCR) Not Detected (Not Detectd) Influenza Type B (PCR) Not Detected (Not Detectd) RSV (PCR) Not Detected (Not Detectd) SARS-CoV-2 (PCR) Not Detected (Not Detectd) - Radiology Data Radiology results: report reviewed, image reviewed Disposition Clinical Impression: Dehydration, Nausea and vomiting, MONIK (acute kidney injury), Head injury Disposition: HOME SELF-CARE Instructions (If sedation given, give patient instructions): Acute Nausea and Vomiting (ED) Additional Instructions: Return to the emergency department with any new, worsening, or concerning symptoms. You can take the Zofran up to every 8 hours as needed for nausea and vomiting. Slowly advance your diet as tolerated and remain well-hydrated. Follow up with your primary care provider in 1-2 days. Prescriptions: Ondansetron Odt [Zofran Odt] 4 mg PO Q8HR PRN #30 tab PRN Reason: Nausea And Vomiting Is patient prescribed a controlled substance at d/c from ED?: No Referrals: Joe Avitia DO [Primary Care Provider] - 1-2 days
--- NOTE | 2023-05-06 11:55 | CT ---
EXAMINATION TYPE: CT brain gina ruiz DATE OF EXAM: 05/06/2023 COMPARISON: None HISTORY: Head injury CT Brain: Unenhanced CT of the brain was performed. The ventricles, basal cisterns and sulci overlying the cerebral convexities demonstrate a normal appe arance. There is no evidence for intracranial hemorrhage or sulcal effacement. No mass effects are seen. If symptoms persist consider MRI. Osseous calvarium is intact. IMPRESSION: No acute intracranial process CT Cervical Spine: Unenhanced CT of the cervical spine was performed with bone and soft tissue window settings submitted . Coronal and sagittal reconstruction is obtained. There is normal alignment and prevertebral soft tissues. I do not see evidence for fracture or sublu xation. No significant degenerative changes are present. The lung apices are clear. IMPRESSION: No evidence for acute fracture or subluxation of the cervical spine.
[2023-05-06 12:03] LABS: ALT 28 U/L (4-34); AST 36 U/L (14-36); African American GFR (CKD) 48 (>60 ml/min/1.73 sqM); Albumin 4.6 g/dL (3.5-5.0); Alkaline Phosphatase 69 U/L (38-126); Amylase 65 U/L (30-110); Anion Gap 10 mmol/L; Blood Urea Nitrogen 21 mg/dL (7-17); Calcium 9.8 mg/dL (8.4-10.2); Carbon Dioxide 35 mmol/L (22-30); Chloride 91 mmol/L (98-107); Glucose 188 mg/dL (74-99); Lipase 229 U/L (23-300); Non-African American GFR(CKD) 42 (>60 ml/min/1.73 sqM); Potassium 4.3 mmol/L (3.5-5.1); Sodium 136 mmol/L (137-145); Total Bilirubin 0.6 mg/dL (0.2-1.3); Total Protein 8.1 g/dL (6.3-8.2)
[2023-05-06] MEDS ORDERED: MORPHINE SULFATE 4 MG/ML SYRINGE IVP STA (12:46)
[2023-05-06] MEDS ORDERED: ACETAMINOPHEN IV (For NPO) 1,000 MG in EMPTY BAG 1 BAG IVPB STA (12:46)
[2023-05-06 13:03] LABS: HCG,Qualitative Serum Not Detected
[2023-05-06 14:23] VITALS: BP 152/101; PULSE 93
[2023-05-06 14:54] LABS: Appearance,Urine Cloudy (Clear); Bilirubin,Urine Negative (Negative); Blood,Urine Negative (Negative); Color,Urine Yellow; Glucose,Urine (UA) 3+ (Negative); Ketones,Urine Trace (Negative); Leukocyte Esterase,Urine Negative (Negative); Mucus,Urine Rare /hpf; Nitrite,Urine Negative (Negative); PH, Urine 6.5 (5.0-8.0); Protein,Urine Trace (Negative); RBC,Urine 4 /hpf (0-5); Specific Gravity,Urine 1.017 (1.001-1.035); Squamous Epithelial Cell,Urine 25 /hpf (0-4); Urobilinogen,Urine <2.0 mg/dL (<2.0); WBC,Urine 2 /hpf (0-5)
[2023-05-06 14:57] LABS: Amphetamine Screen,Urine Not Detected (NotDetected); Barbiturate Screen,Urine Not Detected (NotDetected); Benzodiazepines Screen,Urine Not Detected (NotDetected); Cocaine Screen,Urine Not Detected (NotDetected); Methadone Screen, Urine Not Detected (NotDetected); Opiate Screen,Urine Detected (NotDetected); Oxycodone Screen, Urine Detected (NotDetected); Phencyclidine Screen,Urine Not Detected (NotDetected); Tricyclic Antidepressant,Urine Not Detected (NotDetected); Urn Cannabinoid Scrn Detected (NotDetected)
== END 2023-05-06 14:24 | disposition home or self-care (01) ==
LOC: EC 11:09
DX: S09.90XA Unspecified injury of head, initial encounter (principal); E86.0 Dehydration; N17.9 Acute kidney failure, unspecified; I10 Essential (primary) hypertension; E66.01 Morbid (severe) obesity due to excess calories; E07.9 Disorder of thyroid, unspecified; Z86.59 Personal history of other mental and behavioral disorders; Z79.899 Other long term (current) drug therapy; Z79.890 Hormone replacement therapy; Z68.41 Body mass index [BMI] 40.0-44.9, adult; Z20.822 Contact with and (suspected) exposure to COVID-19; Z87.891 Personal history of nicotine dependence; Z88.1 Allergy status to other antibiotic agents; W19.XXXA Unspecified fall, initial encounter
CPT/HCPCS: 99284 ×2; 96374 ×2; 96375 ×5; 96376 ×2; 96361 ×3; 36415; 80053; 82150; 83690; 85025; 81001; 84703; 80306; 87636; 72125; 70450; J2270; J1100; J2405; J0131; J1885

== ENCOUNTER 2023-12-17 09:37 | Emergency (ER) | payer OTHER ==
[2023-12-17 09:48] VITALS: RESP 18; TEMP 98.4
--- NOTE | 2023-12-17 09:54 | ED ---
Abdominal Pain HPI - General Chief Complaint: Abdominal Pain Stated Complaint: Vomiting, R flank pain Time Seen by Provider: 12/17/23 09:39 Source: patient, RN notes reviewed Mode of arrival: ambulatory Limitations: no limitations - History of Present Illness Initial Comments: This is a 33-year-old female who presents to the emergency department for abdo nuvia pain. States that this is in the right upper quadrant. Denies any radiation of pain. Symptoms started 2 days ago. She has also had persistent nausea and vomiting and is unable to keep anything down. Denies any changes in bowel/bladder habits or urinary symptoms. Denies any history of similar symptoms in the past. MD Complaint: abdominal pain - Related Data Home Medications Medication Instructions Recorded Confirmed Levothyroxine Sodium [Levoxyl] 125 mcg PO QAM 04/12/15 07/02/19 metFORMIN HCL [Glucophage] 1,000 mg PO HS 04/12/15 07/02/19 Tri Previfem ( Control) 1 tab PO DAILY 06/10/15 07/02/19 lisinopriL [Zestril] 5 mg PO QAM 04/14/19 07/02/19 Previous Rx's Medication Instructions Recorded Ondansetron Odt [Zofran Odt] 4 mg PO Q8HR PRN #30 tab 05/06/23 Naproxen Sodium 550 mg PO BID PRN #20 tablet 12/17/23 Ondansetron [Zofran] 4 mg PO Q8HR PRN #30 tab 12/17/23 Pantoprazole [Protonix] 40 mg PO DAILY #10 tab 12/17/23 Allergies Allergy/AdvReac Type Severity Reaction Status Date / Time clindamycin Allergy C-DIFF Verified 12/17/23 09:43 vancomycin Allergy ITCHING, Verified 12/17/23 09:43 HIVES, RED SKIN Review of Systems ROS Statement: Those systems with pertinent positive or pertinent negative responses have been documented in the HPI. ROS Other: All systems not noted in ROS Statement are negative. Past Medical History Past Medical History: Hypertension, Thyroid Disorder Additional Past Medical History / Comment(s): POLYCYSTIC OVARIAN SYNDROME, HX OF RECTAL BLEEDING., STATES HX OF MRSA 2009 ON CHEEK,LEG AND BREAST., HX OF C-DIFF (OCT 2012). History of Any Multi-Drug Resistant Organisms: MRSA Date of last positivie culture/infection: leg MDRO Source:: 2008 Additional Past Surgical History / Comment(s): JOSELIN EYE SURGERY AT 9 MONTHS AND 9 YRS OLD, 2015 Past Anesthesia/Blood Transfusion Reactions: No Reported Reaction Past Psychological History: Anxiety Smoking Status: Former smoker Past Alcohol Use History: Occasional Past Drug Use History: None Reported - Past Family History Father Family Medical History: Hypertension Additional Family Medical History / Comment(s): Grandmother skin CA General Exam Limitations: no limitations General appearance: alert, in no apparent distress Head exam: Present: atraumatic, normocephalic, normal inspection Respiratory exam: Present: normal lung sounds bilaterally. Absent: respiratory distress, wheezes, rales, rhonchi, stridor Cardiovascular Exam: Present: regular rate, normal rhythm, normal heart sounds. Absent: systolic murmur, diastolic murmur, rubs, gallop, clicks GI/Abdominal exam: Present: soft, tenderness (RUQ), normal bowel sounds. Absen t: distended Neurological exam: Present: alert, oriented X3, CN II-XII intact Psychiatric exam: Present: normal affect, normal mood Skin exam: Present: warm, dry, intact, normal color. Absent: rash Course Vital Signs 12/17/23 12/17/23 09:41 14:26 Temperature 98.4 F Pulse Rate 91 82 Respiratory 18 18 Rate Blood Pressure 181/108 178/87 O2 Sat by Pulse 100 98 Oximetry Medical Decision Making - Medical Decision Making This is a 33 year old female who presents to the emergency department for abdominal pain. Was pt. sent in by a medical professional or institution? @ -No Did you speak to anyone other than the patient for history? @ -No Did you review nursing and triage notes? @ -Yes, and I agree, it is accurate with regards to the patient's symptoms. Were old charts reviewed? @ -No Differential Diagnosis? @ -Differential Abdominal Pain Women: Appendicitis, Cholecystitis, diverticulosis, ischemic bowel, pancreatitis, hepatitis, UTI, gastroenteritis, AAA, incarcerated hernia, bowel obstruction, constipation, inflammatory bowel, hepatitis, peptic ulcer disease, splenic infarction, perforated viscus, vulvitis, ovarian torsion, PID, kidney stone, placenta abruption, this is not meant to be an all-inclusive list EKG interpreted by me (3pts min.)? @ -Not obtained X-rays interpreted by me (1pt min.)? @ -Not obtained CT interpreted by me (1pt min.)? @ -CT scan of the abdomen and pelvis obtained. My interpretation identifies no evidence of bowel wall thickening or free air. U/S interpreted by me (1pt. min.)? @ -Gallbladder ultrasound obtained. My interpretation identifies no evidence of cholelithiasis. What testing was considered but not performed? (CT, X-rays, U/S, labs)? Why? @ -None What meds were considered but not given? Why? @ -None Did you discuss the management of the patient with other professionals? @ -No Did you reconcile home meds? @ -No Was smoking cessation discussed for >3mins.? @ -No Was critical care preformed (if so, how long)? @ -No Were there social determinants of health that impacted care today? How? (Homelessness, low income, unemployed, alcoholism, drug addiction, transportation, low edu. Level, literacy, decrease access to med. care, custodial, re hab)? @ -No Was there de-escalation of care discussed even if they declined? (Discuss DNR or withdrawal of care, Hospice)? @ -No What co-morbidities impacted this encounter? (DM, HTN, Smoking, COPD, CAD, Cancer, CVA, Hep., AIDS, mental health diagnosis, sleep apnea, morbid obesity)? @ -None Was patient admitted / discharged? @ -Discharged. Lab work demonstrates leukocytosis with a white blood cell count of 20.8. Lab work was otherwise unremarkable. Gallbladder ultrasound obtained revealing no acute process. Given how elevated her white blood cell count was, further evaluation with a CT scan of the abdomen and pelvis was obtained. CT scan of the abdomen and pelvis revealed no acute process. She does have moderate fatty infiltration of the liver as well as scattered hypodensities in the lower uterus and cervix that may be related to nabothian cysts. Advised that this finding can be followed up outpatient on a nonemergent basis. WBC count likely reactive from persistent nausea and vomiting. Advised she discuss a HIDA scan with her primary care provider given the pain localized in the right upper quadrant. Recommended she follow a bland and low-fat diet for the meantime to reduce the risk of symptom recurrence. Rx for pantoprazole, naproxen, and Zofran provided with dosing instructions reviewed. Patient discharged home in stable condition. Undiagnosed new problem with uncertain prognosis? @ -None Drug Therapy requiring intensive monitoring for toxicity (Heparin, Nitro, Insulin, Cardizem)? @ -None Were any procedures done? @ -None Diagnosis/symptom? @ -Abdominal pain, nausea/vomiting Acute, or Chronic, or Acute on Chronic? @ -Acute Uncomplicated (without systemic symptoms) or Complicated (systemic symptoms)? @ -Uncomplicated Side effects of treatment? @ -None Exacerbation, Progression, or Severe Exacerbation] @ -Not applicable Poses a threat to life or bodily function? @ -No Return precautions reviewed in depth, the patient is instructed to return to the emergency department with any new, worsening, or concerning symptoms. Patient verbalized understanding. This case was discussed in detail with the attending ED physician, Dr. Ventura. Presentation, findings, and treatment plan discussed in detail as well. - Lab Data Result diagrams: 12/17/23 09:57 12/17/23 09:57 Lab Results 12/17/23 12/17/23 12/17/23 Range/Units 09:57 09:57 09:57 WBC 20.8 H (3.8-10.6) k/uL RBC 4.58 (3.80-5.40) m/uL Hgb 13.8 (11.4-16.0) gm/dL Hct 40.8 (34.0-46.0) % MCV 89.0 (80.0-100.0) fL MCH 30.2 (25.0-35.0) pg MCHC 34.0 (31.0-37.0) g/dL RDW 13.0 (11.5-15.5) % Plt Count 299 (150-450) k/uL MPV 7.6 Neutrophils % 86 % Lymphocytes % 8 % Monocytes % 4 % Eosinophils % 1 % Basophils % 0 % Neutrophils # 17.9 H (1.3-7.7) k/uL Lymphocytes # 1.7 (1.0-4.8) k/uL Monocytes # 0.9 (0-1.0) k/uL Eosinophils # 0.1 (0-0.7) k/uL Basophils # 0.0 (0-0.2) k/uL Sodium 141 (137-145) mmol/L Potassium 4.3 (3.5-5.1) mmol/L Chloride 104 (98-107) mmol/L Carbon Dioxide 25 (22-30) mmol/L Anion Gap 12 mmol/L BUN 17 (7-17) mg/dL Creatinine 0.69 (0.52-1.04) mg/dL Est GFR (CKD-EPI)AfAm >90 (>60 ml/min/1.73 sqM) Est GFR (CKD-EPI)NonAf >90 (>60 ml/min/1.73 sqM) Glucose 115 H (74-99) mg/dL Plasma Lactic Acid Chevy (0.7-2.0) mmol/L Calcium 10.2 (8.4-10.2) mg/dL Total Bilirubin 0.4 (0.2-1.3) mg/dL AST 26 (14-36) U/L ALT 26 (4-34) U/L Alkaline Phosphatase 68 (38-126) U/L Total Protein 7.7 (6.3-8.2) g/dL Albumin 4.6 (3.5-5.0) g/dL Amylase 60 (30-110) U/L Lipase 114 (23-300) U/L HCG, Qual Not Detected Urine Color Yellow Urine Appearance Cloudy H (Clear) Urine pH 7.0 (5.0-8.0) Ur Specific [place] 1.036 H (1.001-1.035) Urine Protein 1+ H (Negative) Urine Glucose (UA) 1+ H (Negative) Urine Ketones Trace H (Negative) Urine Blood Moderate H (Negative) Urine Nitrite Negative (Negative) Urine Bilirubin Negative (Negative) Urine Urobilinogen <2.0 (<2.0) mg/dL Ur Leukocyte Esterase Negative (Negative) Urine RBC 7 H (0-5) /hpf Urine WBC 2 (0-5) /hpf Ur Squamous Epith Cells 24 H (0-4) /hpf Urine Bacteria Rare H (None) /hpf Urine Mucus Few H (None) /hpf 12/17/23 Range/Units 09:57 WBC (3.8-10.6) k/uL RBC (3.80-5.40) m/uL Hgb (11.4-16.0) gm/dL Hct (34.0-46.0) % MCV (80.0-100.0) fL MCH (25.0-35.0) pg MCHC (31.0-37.0) g/dL RDW (11.5-15.5) % Plt Count (150-450) k/uL MPV Neutrophils % % Lymphocytes % % Monocytes % % Eosinophils % % Basophils % % Neutrophils # (1.3-7.7) k/uL Lymphocytes # (1.0-4.8) k/uL Monocytes # (0-1.0) k/uL Eosinophils # (0-0.7) k/uL Basophils # (0-0.2) k/uL Sodium (137-145) mmol/L Potassium (3.5-5.1) mmol/L Chloride (98-107) mmol/L Carbon Dioxide (22-30) mmol/L Anion Gap mmol/L BUN (7-17) mg/dL Creatinine (0.52-1.04) mg/dL Est GFR (CKD-EPI)AfAm (>60 ml/min/1.73 sqM) Est GFR (CKD-EPI)NonAf (>60 ml/min/1.73 sqM) Glucose (74-99) mg/dL Plasma Lactic Acid Chevy 1.8 (0.7-2.0) mmol/L Calcium (8.4-10.2) mg/dL Total Bilirubin (0.2-1.3) mg/dL AST (14-36) U/L ALT (4-34) U/L Alkaline Phosphatase (38-126) U/L Total Protein (6.3-8.2) g/dL Albumin (3.5-5.0) g/dL Amylase (30-110) U/L Lipase (23-300) U/L HCG, Qual Urine Color Urine Appearance (Clear) Urine pH (5.0-8.0) Ur Specific [place] (1.001-1.035) Urine Protein (Negative) Urine Glucose (UA) (Negative) Urine Ketones (Negative) Urine Blood (Negative) Urine Nitrite (Negative) Urine Bilirubin (Negative) Urine Urobilinogen (<2.0) mg/dL Ur Leukocyte Esterase (Negative) Urine RBC (0-5) /hpf Urine WBC (0-5) /hpf Ur Squamous Epith Cells (0-4) /hpf Urine Bacteria (None) /hpf Urine Mucus (None) /hpf - Radiology Data Radiology results: report reviewed, image reviewed Disposition Clinical Impression: Abdominal pain, Nausea and vomiting Disposition: HOME SELF-CARE Instructions (If sedation given, give patient instructions): Abdominal Pain (ED) Additional Instructions: Return to the emergency department with any new, worsening, or concerning symptoms. Take the naproxen with Tylenol as needed for pain relief. If you choose to take the naproxen, do not take any other anti-inflammatories such as ibuprofen, take one or the other. Take the pantoprazole daily for 10 days. Take this 30 to 60 minutes before eating or taking other medication. You can ta ke the Zofran up to every 8 hours as needed for nausea and vomiting. Follow up with your primary care provider in 1-2 days. Discuss ordering a HIDA scan to evaluate your gallbladder function. Prescriptions: Naproxen Sodium 550 mg PO BID PRN #20 tablet PRN Reason: Pain Pantoprazole [Protonix] 40 mg PO DAILY #10 tab Ondansetron [Zofran] 4 mg PO Q8HR PRN #30 tab PRN Reason: Nausea And Vomiting Is patient prescribed a controlled substance at d/c from ED?: No Referrals: Lety Davila NPC [REFERRING] - 1-2 days Time of Disposition: 14:20
[2023-12-17] MEDS: ONDANSETRON 4 MG/2 ML VIAL IVP STA (10:34)
[2023-12-17] MEDS: SODIUM CHLORIDE 0.9% 1,000 ML IV STA (10:35)
[2023-12-17] MEDS: KETOROLAC 15 MG/ML 1 ML VIAL IVP STA (10:35)
[2023-12-17] MEDS: MORPHINE SULFATE 2 MG/ML SYRINGE IVP STA ×2 (10:35→13:07)
[2023-12-17 10:56] LABS: Basophils % (A) 0 %; Eosinophils # (A) 0.1 k/uL (0-0.7); Eosinophils % (A) 1 %; HCT 40.8 % (34.0-46.0); HGB 13.8 gm/dL (11.4-16.0); Lymphocytes # (A) 1.7 k/uL (1.0-4.8); Lymphocytes % (A) 8 %; MCH 30.2 pg (25.0-35.0); Mean Platelet Volume 7.6; Monocytes # (A) 0.9 k/uL (0-1.0); Monocytes % (A) 4 %; Neutrophils # (A) 17.9 k/uL (1.3-7.7); Neutrophils % (A) 86 %; Platelet Count 299 k/uL (150-450); RBC 4.58 m/uL (3.80-5.40); WBC 20.8 k/uL (3.8-10.6)
[2023-12-17 11:17] LABS: ALT 26 U/L (4-34); AST 26 U/L (14-36); African American GFR (CKD) >90 (>60 ml/min/1.73 sqM); Albumin 4.6 g/dL (3.5-5.0); Alkaline Phosphatase 68 U/L (38-126); Amylase 60 U/L (30-110); Anion Gap 12 mmol/L; Blood Urea Nitrogen 17 mg/dL (7-17); Calcium 10.2 mg/dL (8.4-10.2); Carbon Dioxide 25 mmol/L (22-30); Chloride 104 mmol/L (98-107); Glucose 115 mg/dL (74-99); HCG,Qualitative Serum Not Detected; Lipase 114 U/L (23-300); Non-African American GFR(CKD) >90 (>60 ml/min/1.73 sqM); Potassium 4.3 mmol/L (3.5-5.1); Sodium 141 mmol/L (137-145); Total Bilirubin 0.4 mg/dL (0.2-1.3); Total Protein 7.7 g/dL (6.3-8.2)
[2023-12-17 12:09] LABS: Appearance,Urine Cloudy (Clear); Bacteria,Urine Rare /hpf; Bilirubin,Urine Negative (Negative); Blood,Urine Moderate (Negative); Color,Urine Yellow; Glucose,Urine (UA) 1+ (Negative); Ketones,Urine Trace (Negative); Leukocyte Esterase,Urine Negative (Negative); Mucus,Urine Few /hpf; Nitrite,Urine Negative (Negative); Protein,Urine 1+ (Negative); RBC,Urine 7 /hpf (0-5); Specific Gravity,Urine 1.036 (1.001-1.035); Squamous Epithelial Cell,Urine 24 /hpf (0-4); Urobilinogen,Urine <2.0 mg/dL (<2.0); WBC,Urine 2 /hpf (0-5)
--- NOTE | 2023-12-17 12:11 | US ---
EXAMINATION TYPE: US gallbladder DATE OF EXAM: 12/17/2023 COMPARISON: NONE CLINICAL INDICATION: Female, 33 years old with history of RUQ pain; RUQ pain since last night. Vomiti ng x 4 days. TECHNIQUE: Multiple sonographic images of the right upper quadrant are obtained. FINDINGS: EXAM MEASUREMENTS: Liver Length: 18.1 cm Gallbladder Wall: 0.18 cm CBD: 0.31 cm Right Kidney: 10.4 x 6.1 x 4.6 cm PSYCH TECH NOTES: Exam is limited due to gas. Pancreas: Tail was not visualized. Liver: *Appears enlarged and coarse in echotexture. Hypoechoic, indistinct area seen adjacent to the gallbladder: 1.6 x 1.4 x 0.6 cm suggestive of possib le focal fatty sparing. Gallbladder: Appears anechoic. Evidence for sonographic Villagran's sign: No CBD: Portions seen appear wnl Right Kidney: No hydronephrosis or masses seen IMPRESSION: 1. No evidence for acute process 2. Hepatic steatosis focal fatty sparing.
--- NOTE | 2023-12-17 14:06 | CT ---
EXAMINATION TYPE: CT abdomen pelvis w con DATE OF EXAM: 12/17/2023 COMPARISON: None INDICATION: Generalized abdominal pain DLP: 1452.7 mGycm, Automated exposure control for dose reduction was used. CONTRAST: 100 ml mL of Isovue 300. Study performed without Oral Contrast TECHNIQUE: Axial images were obtained from above the diaphragm to the pubic rami in the axial plane a t 5 mm thick sections. Reconstructed images are reviewed on the computer in the coronal plane. FINDINGS: Limited CT sections are obtained the lung bases. The lung bases are clear. CT ABDOMEN: Liver: Moderate fatty infiltration is the liver. No discrete masses. Spleen: Normal Pancreas: Normal Adrenal glands: The adrenal glands are normal. Gallbladder: Normal Kidneys: No masses are evident. No hydronephrosis is present. No cysts are present. Aorta: Normal Inferior vena cava: Normal. CT PELVIS: Loops of bowel within the abdomen and pelvis are normal. Studies without oral contrast limiting b owel evaluation. Appendix: Normal as visualized. Urinary bladder: Decompressed, normal as visualized Genitourinary structures: Scattered hypodensities are within the lower uterus could be large and both incisions cyst. Consider additional evaluation with ultrasound. Ovarian follicles appear to be prese nt Osseous structures: No suspicious lytic or sclerotic lesions. IMPRESSION: 1. Moderate fatty infiltration of liver. 2. Scattered hypodensities within the lower uterus and cervix may be related to nabothian cysts. Pelv ic ultrasound to further evaluate this finding.
[2023-12-17] MEDS: ACET/COD 300 MG/30 MG STARTER PACK 6 TAB BTL PO STA (14:24)
[2023-12-17 14:33] VITALS: BP 178/87; PULSE 82
== END 2023-12-17 14:27 | disposition home or self-care (01) ==
LOC: EC 09:37
DX: R10.11 Right upper quadrant pain (principal); R11.2 Nausea with vomiting, unspecified; Z87.891 Personal history of nicotine dependence; Z88.1 Allergy status to other antibiotic agents
CPT/HCPCS: 36415; 80053; 82150; 83605; 83690; 85025; 81001; 84703; 76705; 74177; 99284; 96374; 96375 ×2; 96376; 96361; J2405; J2270; J1885; Q9967

== ENCOUNTER → 2024-07-24 | Outpatient (CLI) | payer OTHER ==
--- NOTE | 2024-07-26 11:49 | MR ---
EXAMINATION TYPE: MR cervical spine wo con DATE OF EXAM: 07/24/2024 1:48 PM COMPARISON: None. CLINICAL INDICATION: Female, 33 years old with history of M54.12 M54.2 M47.812, Chronic neck pain, BU E radiculopathy. TECHNIQUE: Multiplanar multiecho imaging on a 3.0 Jenny magnet is performed through the cervical spin e. IV Contrast: mL (None, if empty) FINDINGS: The craniovertebral junction is normal. Vertebral body alignment is normal. C7-T1: Small left paracentral disc bulge is present with minimal anterior thecal sac compression. No AP spinal canal stenosis evident. No cord contact is evident. Neural foramen are patent. C6-7: There is a tiny right paracentral protrusion with mild anterior thecal sac compression. This co mes in close approximation with the spinal cord. No cord deformity is evident and no spinal canal kim nosis or neural foraminal stenosis present. C5-6: Broad-based disc bulge is present with mild anterior thecal sac compression. No AP spinal canal stenosis present. No cord contact is evident. Neural foramen are patent. C4-5: No focal disc herniation or significant disc bulge is evident. No spinal canal stenosis or irasema ral foraminal stenosis is present. C3-4: Subtle left paracentral disc bulge is present with anterior thecal sac compression. No cord con tact or spinal canal stenosis. Neural foramen are patent.. C2-3: No focal disc herniation or significant disc bulge is evident. No spinal canal stenosis or irasema ral foraminal stenosis is present. IMPRESSION: 1. Mild disc bulges discussed above. No cord contact or spinal canal stenosis present. [facility], , 07/26/2024 11:46 AM
== END | disposition home or self-care (01) ==
LOC: RADMRIMAIN 13:16
PROVIDERS: ATTEND Orthopaedic Surgery
DX: M47.22 Other spondylosis with radiculopathy, cervical region (principal); M50.11 Cervical disc disorder with radiculopathy, high cervical region
CPT/HCPCS: 72141

== ENCOUNTER → 2024-09-04 | Outpatient (CLI) | payer OTHER ==
--- NOTE | 2024-09-04 15:58 | CT ---
EXAMINATION TYPE: CT cervical spine wo con DATE OF EXAM: 09/04/2024 9:35 AM COMPARISON: None. CLINICAL INDICATION: Female, 33 years old with history of M48.02 C SPINAL STENOSIS R20.2 PARESTHESIA OF SKIN; neck pain with numbess and tingling down the arms. TECHNIQUE: Axial CT images from the skull base to the inferior aspect of T2 we obtained without intra venous contrast. Coronal and sagittal reformatted images were also reviewed. Contrast used: mL of , (if blank None) Oral contrast used: (if blank None) CT DLP: 683 mGycm, Automated exposure control for dose reduction was used. FINDINGS: Fracture: None. Osseous structures: Minimal degeneration changes throughout the cervical spine with osteophytes most pronounced anteriorly. Mild facet and uncovertebral joint arthropathy. Vertebral alignment: Alignment within normal limits. Spinal canal/Neural Foramina: No evidence of significant spinal canal narrowing. No evidence for sign ificant neural foraminal stenosis. Neck soft tissues: Prevertebral soft tissues are within normal limits. Other: The airway is patent. The lung apices are clear. IMPRESSION: 1. No evidence of cervical spine fracture. 2. Mild multilevel degenerative disc disease. No significant neural foraminal stenosis throughout the spine. [facility], , 09/04/2024 3:56 PM
== END | disposition home or self-care (01) ==
LOC: RADCTMAIN 09:15
PROVIDERS: ATTEND Orthopaedic Surgery
DX: M48.02 Spinal stenosis, cervical region (principal); M50.30 Other cervical disc degeneration, unspecified cervical region; R20.2 Paresthesia of skin
CPT/HCPCS: 72125

== ENCOUNTER 2025-01-21 09:23 | Emergency (ER) | payer OTHER ==
[2025-01-21 09:30] VITALS: TEMP 99.3
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
[2025-01-21 10:26] LABS: Basophils # (A) 0.06 10*3/uL (0.00-0.10); Basophils % (A) 0.5 %; Eosinophils # (A) 0.26 10*3/uL (0.04-0.35); Eosinophils % (A) 2.3 %; HCT 38.9 % (37.2-46.3); Lymphocytes # (A) 1.55 10*3/uL (0.90-5.00); Lymphocytes % (A) 13.9 %; MCH 30.8 pg (27.0-32.0); MCV 85.7 fL (80.0-97.0); Mean Platelet Volume 9.8 fL (9.5-12.2); Monocytes # (A) 0.56 10*3/uL (0.20-1.00); Neutrophils # (A) 8.67 10*3/uL (1.80-7.70); Platelet Count 267 10*3/uL (140-440); RBC 4.54 10*6/uL (4.10-5.20); RDW 12.2 % (11.5-14.5); WBC 11.13 10*3/uL (4.50-10.00)
[2025-01-21 10:42] LABS: INR 0.9 (<1.2); Prothrombin Time 10.1 sec (10.0-12.5)
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
[2025-01-21] MEDS: SODIUM CHLORIDE 0.9% 1,000 ML IV STA (10:45)
[2025-01-21] MEDS: HYDROmorphone 1 MG/ML 1 ML SYRINGE IVP STA ×2 (10:45→13:16)
[2025-01-21] MEDS: lisinopriL 10 MG TAB PO STA (10:45)
[2025-01-21 10:46] LABS: ALT 23 U/L (4-34); African American GFR (CKD) >90 (>60 ml/min/1.73 sqM); Albumin 4.6 g/dL (3.5-5.0); Alcohol <10 mg/dL; Anion Gap 15 mmol/L; Blood Urea Nitrogen 7 mg/dL (7-17); Calcium 9.8 mg/dL (8.4-10.2); Carbon Dioxide 19 mmol/L (22-30); Chloride 107 mmol/L (98-107); Glucose 180 mg/dL (74-99); Non-African American GFR(CKD) 81 (>60 ml/min/1.73 sqM); Partial Thromboplastin Time 21.3 sec (22.0-30.0); Sodium 141 mmol/L (137-145); Total Bilirubin 0.6 mg/dL (0.2-1.3); Total Protein 7.9 g/dL (6.3-8.2)
[2025-01-21 10:48] LABS: AST 31 U/L (14-36); Alkaline Phosphatase 51 U/L (38-126); Potassium 4.2 mmol/L (3.5-5.1)
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
[2025-01-21 11:23] LABS: Amphetamine Screen,Urine Detected (NotDetected); Barbiturate Screen,Urine Not Detected (NotDetected); Benzodiazepines Screen,Urine Not Detected (NotDetected); Cocaine Screen,Urine Not Detected (NotDetected); Methadone Screen, Urine Not Detected (NotDetected); Opiate Screen,Urine Not Detected (NotDetected); Oxycodone Screen, Urine Not Detected (NotDetected); Phencyclidine Screen,Urine Not Detected (NotDetected); Tricyclic Antidepressant,Urine Detected (NotDetected); Urn Cannabinoid Scrn Detected (NotDetected)
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
[2025-01-21 13:16] VITALS: RESP 20
[2025-01-21] MEDS: ACET/COD 300 MG/30 MG STARTER PACK 6 TAB BTL PO STA (14:28)
[2025-01-21 14:33] VITALS: BP 180/105; PULSE 114
== END 2025-01-21 14:33 | disposition home or self-care (01) ==
LOC: EC 09:23
DX: G89.29 Other chronic pain (principal); M54.2 Cervicalgia; M54.6 Pain in thoracic spine; M54.50 Low back pain, unspecified; R00.0 Tachycardia, unspecified; D72.829 Elevated white blood cell count, unspecified; Z87.891 Personal history of nicotine dependence; Z88.1 Allergy status to other antibiotic agents
CPT/HCPCS: 36415; 93005; 86900; 86901; 80053; 85025; 85610; 85730; 86850; 80306; 80320; 72170; 71045; 72128; 72125; 72131; 70450; 99285; 96374; 96376; 96361 ×4; J1171

== ENCOUNTER 2025-01-21 23:57 | Emergency (ER) | payer OTHER ==
[2025-01-22 00:06] VITALS: RESP 18
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
[2025-01-22] MEDS: HYDROmorphone 1 MG/ML 1 ML SYRINGE IM STA (02:14)
[2025-01-22 02:19] VITALS: BP 121/79; PULSE 79; TEMP 97.7
== END 2025-01-22 02:18 | disposition home or self-care (01) ==
LOC: EC 23:57
DX: M79.10 Myalgia, unspecified site (principal); Z88.1 Allergy status to other antibiotic agents; Z87.891 Personal history of nicotine dependence; V89.2XXA Person injured in unspecified motor-vehicle accident, traffic, initial encounter; Y92.410 Unspecified street and highway as the place of occurrence of the external cause
CPT/HCPCS: 99283; 96372; J1171

== ENCOUNTER → 2025-01-28 | Outpatient (CLI) | payer OTHER | END | disposition home or self-care (01) | LOC: LABPAT 11:58 | PROVIDERS: ATTEND Orthopaedic Surgery | DX: Z01.812 Encounter for preprocedural laboratory examination (principal); Z22.322 Carrier or suspected carrier of Methicillin resistant Staphylococcus aureus; M47.26 Other spondylosis with radiculopathy, lumbar region | CPT/HCPCS: 86850; 86900; 86901; 87070 ==

== ENCOUNTER 2025-03-16 08:22 | Day surgery (SDC) | payer OTHER ==
--- NOTE | 2025-03-16 06:40 | P.HPOR ---
"History of Present Illness H&P Date: 02/28/25 [facility] [address] [place] [address]| MALKA GAVIN DO Patient Name: RK GOLDSTEIN Age/Sex: 34 YO FEMALE : 89 VISIT TYPE: FOLLOW UP [place] [facility] [place] C5-7 ANTERIOR CERVICAL DISCECOMTY AND FUSION CLINICAL SUMMARY: 34-year-old female RK GOLDSTEIN presents for follow-up evaluation following conservative management of cervical spondylosis with radiculopathy. The patient reports persistent neck pain with right upper extremity radicular symptoms involving radiation to the hand, particularly affecting the first three digits, accompanied by weakness in hvac lead strength and wrist extension (4/5). Conservative measures including physical therapy, medications (including NSAIDs, Percocet, [place], and Gabapentin), and activity modifications have failed to provide significant relief. Imaging demonstrates C5-7 spondylosis with moderate central and foraminal stenosis, accompanied by anterior and posterior osteophytes and degenerative disc herniation causing thecal sac compression. After thorough discussion of treatment options and associated risks/benefits, the patient has elected to proceed with C5-7 anterior cervical discectomy and fusion. Pre- surgical clearance has been ordered, and the patient will be scheduled for surgery following completion of necessary pre-operative evaluations. CHIEF COMPLAINT: NECK PAIN, RUE PAIN RADIATION TO HAND WITH WEAKNESS VAS: 5 HISTORY: RK GOLDSTEIN is a 34 YO FEMALE who presents with NECK PAIN, RUE PAIN RADIATION TO HAND WITH WEAKNESS. SHE WENT AND SAW THE HAND DOCTOR WHO STATES SHE HAS CTS WELL BUT TO GET HER NECK DONE. SHE IS HERE TO DISCUSS AND SCHEDULE SURGERY. SHE STATES CONTINUED PAIN IN HER SHOULDER BLADE ON THE RIGHT WITH RADIATION INTO HER RIGHT HAND AND UE WELL WEAKNESS, NUMBNESS/TINGLING AND PAIN. SHE CONTINUES TO PROGRESS WITH HER SX DESPITE CONSERVATIVE TREATMENTS. SHE STATES SHE IS READY FOR SURGERY. WE DISCUSSED OPTIONS AT LENGTH. Patient denies any f/c/sob/cp, perineal numbness or tingling, bowel or bladder incontinence/retention. Patient is ambulatory The patients' past social, medical, family, surgical history, as well as review of systems, have been reviewed. Please refer to the Neurosurgery History and Physical form that has been scanned into our electronic medical record system. 16 points review of systems completed and as stated in HPI, all other systems reviewed are negative. PREVIOUS TREATMENTS: PAST IMAGING: YES CT, MRI, XR TRAUMA RELATED: NO WORK RELATED: NO PT IN LAST 6 MONTHS: YES NO IMPROVEMENT PHYSICIAN DIRECTED HOME EXERCISE PROGRAM: YES NO IMPROVEMENT ACTIVITY MODIFICATION: YES LIMITED BLTPP 20 LBS. MISSING WORK LATELY DUE TO THIS MEDICATIONS: YES IBU, MOTRIN, TYLENOL, PERCOCET, NORCO, GABAPENTIN ALTERNATIVE INTERVENTIONS (CHIROPRACTIC, ACUPUNCTURE, MASSAGE, RICE): YES BRACING: NO INJECTIONS (TIFFANI, TF, RFA): YES OTHER: NO MEDICAL HISTORY: Past Medical History: REVIEWED STATED IN CHART Past Surgical History: REVIEWED STATED IN CHART Social History: REVIEWED STATED IN CHART Smoking/ Tobacco use: Never Smoker ETOH use: None Substance use: None Family History: REVIEWED STATED IN CHART Current Medications: REVIEWED STATED IN CHART See nursing list. Reviewed with pt. PHYSICAL EXAM: General: AOX3, NAD, Well hydrate, Well nourished HEENT: No lumps or masses Extremities: No color changes, no pooling INTEGUMENT: Appearance: Normal color and turgor Surgical Incisions: NA Hairy Patches: ABSENT Dorsal Skin Dimples: Normal [employer] spots: ABSENT PALPATION: (TTP) Midline: YES Paracervical: YES Parathoracic: NO Paralumbar: NO SIJ TESTING: Not Tested POSTURAL BALANCE: -Coronal: BALANCED -Sagittal: BALANCED -Shoulder height: LEVEL -Pelvic Girdle: LEVEL ROM AND APPEARANCE: Neck: RESTRICTED WITH PAIN Lumbar: UNRESTRICTED Shoulders: Symmetrical Hips: Symmetrical Knees: Symmetrical Hands: Symmetrical Feet: Symmetrical VASCULAR STATUS: RUE- 2 LUE-2 RLE-2 LLE-2 Edema: NONE NEUROLOGICAL EXAMINATION: Mental Status: Awake, alert, oriented fully with normal attention, concentration and memory. Fluent appropriate speech. CRANIAL NERVES: I: Olfactory not tested. II: Visual acuity normal, no visual field deficit noted with confrontation. III,IV: Normal pupillary reflexes & intact extraocular movements without nystagmus. V,: Intact symmetrical facial sensation. VII: Intact symmetrical facial motor movementVIII: Hearing intact. IX,X: Intact gag, swallow, & normal voice. XI: Sternocleidomastoid, trapezius function intact. XII: Tongue midline with normal movements. TENSIONING: L'HERMITTE'S SIGN: NEGATIVE SPURLING'S SIGN: POSITIVE CUBITAL COMPRESSION: NEGATIVE TINEL'S AT WRIST: NEGATIVE SLR:NEGATIVE BILATERAL CROSSED SLR: NEGATIVE MOTOR EXAM (0-5/5, NT) Muscle appearance: * Symmetrical, without signs of atrophy or dystrophy UPPER EXTREMITY RIGHT LEFT SHOULDER ABDUCTION 5 5 BICEP 5 5 TRICEP 5 5 WRIST EXTENSION 4 5 INTRINSICS 4 5 MANAGER TECHNICAL SERVICES 4 4 LOWER EXTREMITY HIP FLEXION 5 5 KNEE FLEXION 5 5 KNEE EXTENSION 5 5 DORSIFLEXION 5 5 PLANTAR FLEXION 5 5 EHL 5 5 FHL 5 5 REFLEXES (0-4/2, NT): RIGHT LEFT BICEP 2 2 TRICEP 2 2 BRACHIORADIALIS 2 2 PATELLAR 2 2 ACHILLES 2 2 PATHOLOGICAL REFLEXES: RIGHT LEFT HOFFMANS ABSENT ABSENT CLONUS ABSENT ABSENT BABINSKI ABSENT ABSENT Rectal Tone: INTACT SENSATION (0-4, NT): Intact to light touch and pain sensation to C5-T1 as well as L2-S2 except that noted below Hyperesthesia: ABSENT Dermatomal deficit: YES Levels: C5-7 RUE GAIT AND FUNCTIONAL EVALUATION: -Ambulatory aids NO -Rombergs test NEGATIVE -Hand and finger dexterity intact bilaterally? NO -Dysdiadochokinesia examination negative bilaterally? NO -Toe heel walk / heel-toe walk intact while maintaining satisfactory balance? NO -Squatting/straightening w/o assistance to a min of 60 degree knee flexion? NO -Single leg stance: NOT ABLE -Trendelenburg sign NT IMAGING: IMAGING REVIEWED AGAIN WITH PT. C5-7 SPONDYLOSIS WITH STENOSIS, ANTERIOR AND POSTERIOR OSTEOPHYTES ALONG WITH FORAMINAL STENOSIS THAT IS MODERATE. THERE IS OVERGROWTH OF LIGAMENTAL TISSUES. THERE IS DEGENERATIVE DISC HERNIATIONS CAUSING THECAL SAC PRESSURE. NO FRACTURES OR LESIONS. IMPRESSION: It was my pleasure to have seen and examined RK GOLDSTEIN . I reviewed the patient's clinical syndrome, physical findings, and imaging studies during the appointment today. It is my impression that the patient has a diagnosis of. C5-7 SPONDYLOSIS WITH STENOSIS AND RADICULOPATHY RUE RADICULOPATHY C5-6 AND C6-7 DISC DISEASE NECK PAIN PLAN: DISCUSSION: I have discussed with the patient their clinical signs and symptoms as well as imaging. Natural course, possible outcomes, progression and issues. SURGICAL RECOMMENDATION: C5-7 ANTERIOR CERVICAL DISCECOMTY AND FUSION SPINE SURGERY CLINICAL AND RISK REVIEW RK GOLDSTEIN is a 34 YO FEMALE presenting for evaluation of NECK PAIN, SHOULDER BLADE PAIN, PAIN RADIATING TO THE HANDS AND FIRST THREE FINGERS. . It was my pleasure to have seen and examined RK GOLDSTEIN . In our visit today we have had a chance to go over subjective complaints, physical examination findings and treatments including the natural course history without intervention and various interventional options. The patient's imaging demonstrates the following findings: C5-7 SPONDYLOSIS WITH ANTERIOR OSTOEPHTYES WELL POSTERIOR WITH DISC COLLAPSE AND FORAMINAL STENOSIS RELATED THAT IS MODERATE. MODERATE CENTRAL STENOSIS NOTED. On a physical exam,RK GOLDSTEIN demonstrates the following findings: PAIN IN THE RIGHT THAT RADIATES TO HER RIGHT HAND IN THE FIRST THREE DIGITS. IT RADIATES ON THE BACK SIDE OF THERE IS WEAKNESS IN HER MANAGER TECHNICAL SERVICES WELL WRIST EXTENSION. nUMBNESS/TINGLING NOTED WELL IN THESE FINGERS. FINE MOTOR DISRUPTION WELL. HAS HAD INCIDENCE OF DROPPING THINGS AT WORK WHICH HAS BEEN DETRIMENTAL TO HER EMPLOYMENT ADLS HAVE BECOME DIFFICULT AND MORE EGREGIOUS DUE TO HER SX. I have explained to the patient that as their condition progresses it will cause further neurological deficits and eventual paralysis. Based on the patients imaging, physical exam, and the rapid progression and disabling nature of their symptoms, at this time I recommend surgery in the form of a: C5-7 ANTERIOR CERVICAL DISCECOMTY AND FUSION. I discussed the risk and benefits of this procedure at length with RK GOLDSTEIN . The patient has agreed to consider pursuing the procedure above mentioned. Prior to surgery, they should follow up with her PCP (Cardio, ID, IM etc) for clearance. Questions were invited and answered, and the patient wishes to proceed as outlined below. Currently, I am recommending: C5-7 ANTERIOR CERVICAL DISCECOMTY AND FUSION Obtain appropriate presurgical workup and clearances as discussed with the patient. Review of surgical risks and benefits as well as an educational packet on the proposed surgical procedure. Risks: All surgical procedures come with inherent risks, including those related to positioning, anesthesia, intraoperative findings, and postoperative complications. It is important to understand that surgery does not come with any guarantee of a successful outcome as complications and adverse events are always possible. The patient was given a handout in the office today discussing the surgical procedure and risks associated with the intervention, both of which were discussed with the patient. These risks include but are not limited to the following: Experiencing same, different or even worse symptoms in back, neck, arms, or legs compared to before surgery. Requiring further surgery or other forms of treatment presently or at some time in the future at same or other levels of the intended spine surgery. On an extreme but fortunately relatively rare basis severe complications such as blindness, stroke, heart attack, temporary and/or permanent nerve injury, paralysis, coma, or may occur, sometimes without known expla nation. Surgical complications may include but are not limited to risk of infection, fluid accumulation in the surgical dissection site, including a seroma or hematoma, that requires additional surgery, wound drainage, bleeding, new numbness or weakness, vision changes/loss, spinal fluid leakage, non-healing and/or infected incision, headaches, difficulty or inability to swallow, hoarseness, hemopneumothorax, pneumothorax, impotence, retrograde ejaculation, vaginal dryness; injury to nerves, spinal cord, blood vessels, lymphatics or other vital organs (i.e., bowel injury, injury to the great vessels); heterotopic bone formation; complications related to the hardware such as screws, rods, cages including misplaced hardware, device failure, instrumentation at the wrong spine level, hardware fracture/breakage, or hardware loosening; vertebral failure of the spinal column above or below the newly placed hardware; retained surgical instrumentations or devices and the need for further surgery. Medical risks of the planned spine surgery include but are not limited to generalized Infections to the whole body or local areas outside of the surgical site (sepsis), heart attack, bleeding, anaphylaxis, meningitis, seizure, epilepsy, hearing loss, burn villavicencio, laceration of the head or other areas of the body, bruising, hypersensitivity of the skin, bladder over distension; allergic reaction; shoulder injury related to positioning; fat, blood and air clots to other areas of the body like heart, lungs, brain; failure of internal organs such as lungs, kidneys, liver and excessive bleeding. If blood transfusions are necessary, note that transfusions may cause intolerance reactions such as anaphylaxis or other complex reactions. Despite best efforts, the results of spine surgery might not heal in terms of bone, soft tissues such as skin, fascia, ligaments, and joints. Additionally, in order to achieve best possible results, spine surgery may be carried out beyond the initially planned levels and involve decompression, fusion including insertion of hardware at levels other than the original intended area of surgical interest change some portions of the procedure in order to ensure the best possible outcomes. With spine surgery and spinal fusion, there are different off label uses of instrumentation (devices, implants and hardware) as well as biological substances (bone morphogenic proteins, demineralized bone matrix) as well as using extra bone from allograft sources (i.e. cadaver bone) or autograft (iliac crest bone, ribs, or the spine itself). The patient has been given information about these practices and their inherent risks and benefits. The patient has had a chance to review all the listed information, has been given print outs detailing this information, and has had all his/her questions answered to their satisfaction. It was my pleasure to have seen and examined RK GOLDSTEIN . In our visit today we have had a chance to go over my understanding of our patient's current condition, the natural course history without intervention and various interventional options. Questions were invited and answered, and the patient wishes to proceed as outlined above. I have seen and examined the patient for 25 minutes and we have spent more than 50% of the time in repeat and detailed counseling about the patient's condition, its natural course history without and as much as can be predicted with surgery and re-review of various surgical treatment options. In conclusion, RK GOLDSTEIN and their family requested we proceed with the above suggested surgery and are willing to accept risks and limitations of the suggested surgery as the nature of the disease process and our best attempts at treatment for the condition. In our visit today the patient and I have had a chance to go over my understanding of their current condition, the natural course history without intervention and various interventional options. Questions were invited and answered, and the patient wishes to proceed as outlined above. MEDICAL NECESSITY NOTE: Patient demonstrates clear medical necessity for C5-7 anterior cervical discectomy and fusion due to documented cervical spondylosis with moderate central and foraminal stenosis, causing persistent radiculopathy and functional decline. The patient presents with progressive neurological symptoms including right upper extremity weakness (4/5 in hvac lead strength and wrist extension), sensory changes in C5-7 distribution, and radicular pain affecting the first three digits of the right hand. Conservative management including physical therapy, medications (NSAIDs, Percocet, [place], and Gabapentin), and activity modifications has failed to provide meaningful relief. Imaging confirms C5-7 spondylosis with moderate central and foraminal stenosis, accompanied by anterior and posterior osteophytes and degenerative disc herniation causing thecal sac compression, correlating with clinical findings. SURGICAL RATIONALE NOTE: Surgical intervention via C5-7 anterior cervical discectomy and fusion is indicated based on the presence of progressive neurological deficits, correlation of imaging findings with clinical symptoms, and failure of conservative management. The patient demonstrates clear surgical indicators including documented cervical radiculopathy with motor weakness, sensory changes, and functional decline affecting activities of daily living and work capabilities. The chosen surgical approach will address both the neural compression and structural instability, with the goal of preventing further neurological deterioration and providing symptomatic relief. The multi-level involvement and presence of both central and foraminal stenosis necessitates a comprehensive decompression and stabilization procedure to achieve optimal outcomes. FOLLOW UP: POST OP PLAN AT NEXT VISIT: RECHECK PATIENT EDUCATION: Medications Reviewed: YES In our visit today the patient and I have had a chance to go over my understanding of their current condition, the natural course history without intervention and various interventional options. Questions were invited and answered, and the patient wishes to proceed as outlined above. I will be sure to keep you updated after the patient returns here for further follow-up. Thank you again for your referral. Please do not hesitate to contact me if you have any further questions. Signed and authenticated by: Dec 14, 2024 2:35?PM EDT DO Lara Davalos [facility] [address] [address] This document is confidential, intended only for the named recipient(s) and may contain information that is privileged or exempt from disclosure under applicable law. If you are not the intended recipient(s), you are notified that the dissemination, distribution or copying of this information is strictly prohibited. If you received this message in error, please notify the sender then delete this message. Past Medical History Past Medical History: Hyperlipidemia, Hypertension, Thyroid Disorder Additional Past Medical History / Comment(s): POLYCYSTIC OVARIAN SYNDROME, HX OF RECTAL BLEEDING., STATES HX OF MRSA 2008 ON BUTTOCKS ,LEG AND BREAST., HX OF C- DIFF (OCT 2012), hypothyroidism History of Any Multi-Drug Resistant Organisms: MRSA Date of last positivie culture/infection: leg MDRO Source:: 2008 Past Surgical History: Breast Surgery Additional Past Surgical History / Comment(s): JOSELIN EYE SURGERY AT 8 MONTHS, 9 yr and 21yrs, 2 benign tumors removed bilat. breasts 2019, colonoscopy Past Anesthesia/Blood Transfusion Reactions: No Reported Reaction Smoking Status: Former smoker, Vaper - Past Family History Father Family Medical History: Hypertension Additional Family Medical History / Comment(s): Grandmother skin CA Medications and Allergies Home Medications Medication Instructions Recorded Confirmed Type Levothyroxine Sodium [Levoxyl] 25 mcg PO QAM 04/12/15 03/15/25 History lisinopriL [Zestril] 10 mg PO QAM 04/14/19 03/15/25 History Dextroamphetamine/Amphetamine 20 mg PO BID 01/27/25 03/15/25 History [Adderall] Gabapentin [Neurontin] 800 mg PO TID 01/27/25 03/15/25 History Rosuvastatin [Crestor] 10 mg PO DAILY 01/27/25 03/15/25 History Venlafaxine HCl ER [Effexor Xr] 150 mg PO DAILY 01/27/25 03/15/25 History oxyCODONE-APAP 10-325MG [Percocet 1 tab PO Q6HR PRN 01/27/25 03/15/25 History 10-325 mg] tiZANidine [Zanaflex] 4 mg PO TID PRN 01/27/25 03/15/25 History Zolpidem Tartrate [Ambien Cr] 12.5 mg PO HS PRN 03/15/25 03/15/25 History Allergies Allergy/AdvReac Type Severity Reaction Status Date / Time clindamycin Allergy C-DIFF Verified 01/27/25 14:40 vancomycin Allergy ITCHING, Verified 01/27/25 14:40 HIVES, RED SKIN Physical Examination Osteopathic Statement: *. No significant issues noted on an osteopathic structural exam other than those noted in the History and Physical/Consult."
[~2025-03-16 08:22] MED LIST changes: -DEXAMETHASONE SOD PHOSPHATE 10 MG/ML 1 ML VIAL IV ONE; -HEPARIN SODIUM,PORCINE 5,000 UNIT/ML 1 ML VIAL SQ ONE; -LACTATED RINGERS 1,000 ML IV SCH; -LIDOCAINE 1% 20 ML VIAL (10MG/ML) FOR IV START INTRADERMA PRN; -MIDAZOLAM 2 MG/2 ML VIAL IV PRN; -ONDANSETRON 4 MG/2 ML VIAL IVP ONE; -SCOPOLAMINE 1.5MG/72HR PATCH TRANSDERM ONE; +TRANEXAMIC 1,000 MG/100ML-NACL 1,000 MG in SALINE 1 100ML.BAG IVPB PRN
[2025-03-16] MEDS: LACTATED RINGERS 1,000 ML BAG IV STA (08:58)
[2025-03-16] MEDS: IV FLUID CONTINUATION 1,000 ML IV ONE ×3 (09:00→17:22)
[2025-03-16] MEDS: GABAPENTIN 300 MG CAP PO PRN (09:04)
[2025-03-16] MEDS: ACETAMINOPHEN TAB 500 MG TAB PO PRN (09:04)
[2025-03-16] MEDS: DEXAMETHASONE SOD PHOSPHATE 4 MG/ML 1 ML VIAL IVP STA (09:05)
[2025-03-16] MEDS: ONDANSETRON 4 MG/2 ML VIAL IVP PRN (09:06)
[2025-03-16] MEDS: MIDAZOLAM 2 MG/2 ML VIAL IV ONE (09:07)
[2025-03-16] MEDS: FAMOTIDINE 20 MG/2 ML VIAL IV STA (09:15)
[2025-03-16] MEDS ORDERED: TRANEXAMIC 1,000 MG/100ML-NACL PREMIX BAG ONE (09:22)
[2025-03-16] MEDS ORDERED: MIDAZOLAM 2 MG/2 ML VIAL ONE (09:22)
[2025-03-16] MEDS ORDERED: fentaNYL (PF) 50 MCG/ML 2 ML AMP ONE (09:22)
[2025-03-16] MEDS ORDERED: ePHEDrine 50 MG/ML 1 ML VIAL ONE (09:22)
[2025-03-16] MEDS ORDERED: KETAMINE HCL IN 0.9 % NACL 50 MG/5 ML SYRINGE ONE (09:22)
[2025-03-16] MEDS ORDERED: GLYCOPYRROLATE 0.2 MG/ML 2 ML VIAL ONE (09:22)
[2025-03-16] MEDS ORDERED: HYDROmorphone (PF) 1 MG/ML ONE (09:22)
[2025-03-16] MEDS ORDERED: PROPOFOL 10 MG/ML 20 ML VIAL IV ONE (09:22)
[2025-03-16] MEDS ORDERED: LIDOCAINE 1% INJ 10MG/ML (20 ML MDV) ONE (09:22)
[2025-03-16] MEDS ORDERED: NEOSTIGMINE 1 MG/ML 10 ML VIAL ONE (09:22)
[2025-03-16] MEDS ORDERED: SUCCINYLCHOLINE CHLORIDE 200 MG/10 ML VIAL IV ONE (09:22)
[2025-03-16] MEDS ORDERED: ROCURONIUM 10 MG/ML (5 ML VIAL) IV ONE (09:22)
[2025-03-16] MEDS: THROMBIN (BOVINE) 5,000 UNIT VIAL TOPICAL ONE (10:15)
--- NOTE | 2025-03-16 11:25 | P.OP ---
Date of Procedure: 03/16/25 Preoperative Diagnosis: 1. C5-7 SPONDYLOSIS WITH STENOSIS 2. 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 BUE RADICULOPATHY 4. NECK PAIN Postoperative Diagnosis: 1. C5-7 SPONDYLOSIS WITH STENOSIS 2. 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 BUE RADICULOPATHY 4. NECK PAIN Procedure(s) Performed: 1. C5-6 ANTERIOR CERVICAL ARTHRODESIS 2. C6-7 ANTERIOR CERVICAL ARTHRODESIS 3. C5-7 ANTERIOR CERVICAL INSTRUMENTATION 4. C5-6 AND C6-7 INSERTION OF BIOMECHANICAL DEVICE, CAGES, x2 USE OF IONM USE OF IO MICROSCOPE Implants: GLOBUS COALITION CAGES, 12 MM ANCHORS 9 AND 8MM PLATE MAGNATOS Anesthesia: GETA Surgeon: Kelton Mckeon Vp Clinical #1: Kwan Fernandez (WAS PRESENT AND ASSISTE DWITH ALL ASPECTS OF THE CASE FROM POSITION TO DRESSING PLACEMENT) Estimated Blood Loss (ml): 20 IV fluids (ml): 1,000 Urine output (ml): 0 Pathology: none sent Condition: stable Disposition: PACU Indications for Procedure: SURGICAL PLAN: C5-7 ANTERIOR CERVICAL DISCECOMTY AND FUSION CLINICAL SUMMARY: 34-year-old female RK GOLDSTEIN presents for follow-up evaluation following conservative management of cervical spondylosis with radiculopathy. The patient reports persistent neck pain with right upper extremity radicular symptoms involving radiation to the hand, particularly affecting the first three digits, accompanied by weakness in environmental protection specialist strength and wrist extension (4/5). Conservative measures including physical therapy, medications (including NSAIDs, Percocet, Elkins, and Gabapentin), and activity modifications have failed to provide significant relief. Imaging demonstrates C5-7 spondylosis with moderate central and foraminal stenosis, accompanied by anterior and posterior osteophytes and degenerative disc herniation causing thecal sac compression. After thorough discussion of treatment options and associated risks/benefits, the patient has elected to proceed with C5-7 anterior cervical discectomy and fusion. Pre- surgical clearance has been ordered, and the patient will be scheduled for [facility] following completion of necessary pre-operative evaluations. Description of Procedure: C5-7 ACDF (Stand Alone) The patient was seen and examined in the preoperative area. All preoperative protocols were followed. Informed consent was obtained, risks and benefits of the procedure were discussed at length. Risks including bleeding infection damage to the surrounding tissue and risk of reoperation were discussed with the patient. Risk of anesthesia up to and including was discussed with the patient. These are outlined in the risk review. They were willing to accept these risks and all the risks of surgery. The patient was given a weight-based dose of antibiotics in the form of 2 g Ancef. The patient was seen and evaluated by the anesthesia team who deemed them fit for surgery. The site was marked, the patient was willing to proceed with the procedure. The patient was transferred to the operative suite by the Department of anesthesia. They were then drifted off to sleep by the department anesthesia and GETA was performed. The patient tolerated this well. Garg catheter was placed by nursing staff, a-traumatically. Once confirmation of lines and ventilation the patient was transferred to a Supine Matty table very carefully. All bony prominences including wrists, elbows, axilla, chest, hips, and thighs, and feet were padded very well. Special attention was paid to the genitalia, and these were padded accordingly. SCDs were placed on bilateral lower extremities and were connected. Arms were well padded and placed at their side thumbs up. Once in position, again we confirmed good ventilation capabilities and that lines were running appropriately. The patients Cervical spine was then exposed. 1010s were placed outlining the incision site. Standard alcohol was used to clean the incision site and allowed to dry. C-arm was used to bio-albert the patient and confirm level for incision which was marked with a skin marker. Operative briefing was performed with all teams and everyone in agreement to proceed. The patient was then prepped and draped in a normal sterile fashion. Timeout was then performed, and all parties agreed with the procedure to be performed. Transverse skin incision was then made on the right side of the patient's neck 3 cm and dissection taken down to the platysma which was split transversely. Sub platysma flap was made, and interval identified between SCM and medial structures. Omohyoid was visualized and protected. Blunt dissection taken down to the anterior cervical fascia which was identified. Blunt probe was then placed and lateral image taken which confirmed levels for operation. These levels were then marked with a bovi. Subperiosteal dissection of the longissimus muscles were then done over these levels identifying uncovertebral joints bilaterally. Retractor was then placed deep to these muscles and held in place with a bed arm. Starting at C6-7, [place] pins were placed into C6 and C7 and gentle distraction taken out over the levels. Laila rongeur used to remove disc material. Operating microscope brought in for visualization. Complete discectomy performed at this level with curette, rongure and pituitary. High speed dimitrios used to remove osteophytes anteriorly and posteriorly until PLL was identified. 6-0 up curette then used to identify the canal and resect the PLL. 2-0 and 3-0 Kerrison used then to remove PLL and disc herniation and performed b/l foraminotomies. Once good decompression was accomplished, meticulous hemostasis was performed. Sizers were then placed under lateral fluoroscopy until the desired height and lordosis. Cage was then selected, packed with autograft and allograft and placed under lateral imaging. Once in good position it was tested and stable. Motors run before and after cage placement were stable. The wound was irrigated, and autograft placed lateral to the cage anteriorly for fusion. [place] pin was then removed from C7 and placed into C5. Gentle distraction taken out over C5-6 now. Complete discectomy done at C5-6 as described including decompression, b/l foraminotomies and PLL resection. Burring of endplates was minimal, osteophytes removed as described. Spacers were then sized and placed under lateral imaging. Cage selected, packed with graft and placed under lateral images. Once in position, meticulous hemostasis performed, and motors remained stable before and after cage placement. AP image confirmed good placement of cages. Wound was irrigated. After each cage placement, anterior instrumenting was done through the cage and plate with good purchase using lateral imaging. The anchors were placed inferiorly and superiorly and locked. All locking mechanisms were set, and all screws had good purchase. Final AP and lateral images taken confirmed good placement of hardware and good reduction and presybeterian of height. The wound was then irrigated copiously with NSS. Devyn gicel placed deep in the wound. A deep drain placed out a separate incision and sewed into place. Layered closure then performed with 3-0 Vicryl in the platysma and subQ tissue. 4-0 Strata fix in the subcuticular tissue. The wound was then cleaned, and dried and skin glue placed. Once glue dried on Opifoam was placed. The patient was then transferred back to their hospital bed a-traumatically. The drain continued to hold suction. They were placed in a soft collar. They were then awakened by the department of anesthesia having tolerated the procedure well without complications.
--- NOTE | 2025-03-16 11:42 | XR ---
EXAMINATION TYPE: XR cervical spine limited, OK guidance operating room Intraoperative/procedural flu oroscopic services were provided. CLINICAL INDICATION:Female, 34 years old with history of C5-7 FUSION; , [facility] FINDINGS: Post surgical changes of anterior cervical fusion at C5-C7. No radiographic evidence for complication . Total fluoroscopy time is 17.9 seconds. DAP: 0.6037 Gycm2 Please see the operative/procedural note for further details. [facility], , 03/16/2025 11:40 AM
[2025-03-16] MEDS ORDERED: ONDANSETRON 4 MG/2 ML VIAL IVP PRN (11:57)
[2025-03-16] MEDS ORDERED: SENNOSIDES-DOCUSATE SODIUM 1 EACH TAB PO PRN (11:57)
[2025-03-16] MEDS ORDERED: HYDROmorphone 0.5 MG/0.5 ML SYRINGE IVP PRN (11:57)
[2025-03-16] MEDS ORDERED: oxyCODONE-APAP 10-325MG 1 EACH TAB PO PRN (12:00)
[2025-03-16] MEDS: KETOROLAC 15 MG/ML 1 ML VIAL IVP SCH (12:14)
[2025-03-16] MEDS: HYDROmorphone 0.5 MG/0.5 ML SYRINGE IVP PRN (12:21)
[2025-03-16] MEDS: hydrALAZINE HCL 20 MG/ML 1 ML VIAL IVP STA ×2 (13:22→15:38)
[2025-03-16] MEDS: HYDROmorphone 1 MG/ML 1 ML SYRINGE IVP PRN (14:31)
[2025-03-16] MEDS: ACETAMINOPHEN TAB 325 MG TAB PO SCH (15:18)
[2025-03-16] MEDS: GABAPENTIN 400 MG CAP PO SCH (18:24)
[2025-03-16] MEDS: CYCLOBENZAPRINE 5 MG TAB PO PRN (18:24)
[2025-03-16] MEDS: oxyCODONE-APAP 10-325MG 1 EACH TAB PO PRN (18:24)
[2025-03-16] MEDS ORDERED: ZOLPIDEM 5 MG TAB PO PRN (18:42)
[2025-03-16] MEDS ORDERED: hydrALAZINE HCL 20 MG/ML 1 ML VIAL IVP PRN (18:43)
[2025-03-16] MEDS: NON FORMULARY DRUG (Dextroamphetamine/Amphetamine [Adderall] 20 MG Tablet) PO SCH (20:11)
[2025-03-17] MEDS: LEVOTHYROXINE 25 MCG TAB PO SCH (06:46)
[2025-03-17] MEDS ORDERED: CYCLOBENZAPRINE 5 MG TAB PO PRN (07:28)
--- NOTE | 2025-03-17 07:56 | P.PN ---
Subjective Progress Note Date: 03/17/25 Principal diagnosis: 1. C5-7 SPONDYLOSIS WITH STENOSIS 2. 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 BUE RADICULOPATHY 4. NECK PAIN Patient seen and examined this morning. She is resting comfortably in bed. She does report that her pain has not been managed on current regimen. Discussed with patient that medications will be adjusted. Surgical incision to the anterior cervical spine, dressing is CDI. Soft cervical collar is in place. Encourage patient to increase her activity. She states she has been ambulatory to the restroom and tolerating activity well. Patient may be discharged this afternoon. No acute concerns. Objective - Vital Signs Vital signs: Vital Signs Temp 98.8 F 03/16/25 19:00 Pulse 81 03/16/25 19:00 Resp 17 03/16/25 19:00 BP 147/83 03/16/25 19:00 Pulse Ox 96 03/16/25 19:00 FiO2 Intake & Output 03/16/25 03/17/25 03/17/25 18:59 06:59 18:59 Intake Total 2150 2179 Output Total 25 Balance 2125 2179 Weight 96.2 kg Intake: IV 2150 Oral 2179 Output: Estimated Blood Loss 25 Other: # Voids 1 5 - Exam Physical Examination General: The patient is awake and alert, in no acute distress. Skin: Skin is warm and dry with no obvious rashes or lesions. Surgical incision to the anterior cervical spine, dressing is CDI. Eye: Pupils are equal, round and reactive to light, extra-ocular movements are intact; there is normal conjunctiva bilaterally. Neck: The neck is supple, there is mild tenderness around the incision site. Limited ROM secondary to pain and stiffness from surgical procedure. Soft collar is intact. Respiratory: Respirations are non-labored. Gastrointestinal: Soft, non-distended, non-tender abdomen. Back: There is no tenderness to palpation in the midline, paralumbar, parathoracic or buttocks region. There is no obvious deformity. Musculoskeletal: Right: Shoulder abduction 5/5, elbow flexors 5/5, wrist dorsiflexors 5/5. finger abductor 5/5, electrical electronics engineers 4+/5, hip flexor 5/5, knee flexor 5/5, ankle dorsiflexor 5/5, ankle plantarflexion 5/5 and extensor hallucis 5/5 Left: Shoulder abduction 5/5, elbow flexors 5/5, wrist dorsiflexors 5/5. finger abductor 5/5, electrical electronics engineers 4+/5, hip flexor 5/5, knee flexor 5/5, ankle dorsiflexor 5/5, ankle plantarflexion 5/5 and extensor hallucis 5/5. Neurological: CN 2-12 intact. There are no obvious motor or sensory deficits. Movement and coordination equal and intact. Sensory exam to light touch intact C5-T1 and intact from L2-S1. Reflexes 2/4 in bilateral upper and lower extremities. Negative Hoffmans, babinski, and clonus signs. Psychiatric: Cooperative, appropriate mood & affect, normal judgment. Assessment and Plan Assessment: Post Op Day 1: C5-C7 ACDF Plan: -Appreciate peoplesoft consultant and team management. -Activity: Ambulate QID, OOB all meals, up and about, limit lifting bending twisting to less than 5 lbs. Use walker or cane if needed for stability. -Daily PT/OT, increase ambulation strength and balance. -Soft cervical collar on at all times, may remove for showers. -Pain control: Adequate at this time -Meds: reviewed -GI ppx: senna, Miralax -DVT PPX: TEDS -Hygiene: Maintain incision clean and dry. May change dressing as needed, please document in notes if performed. -Encourage IS 10x/hr -Dispo: Discharge home this afternoon. *I reviewed and discussed this case with my attending Dr. Mckeon, whom has reviewed this chart and films and is in agreement with assessment and plan of care as outlined above. I have personally seen and examined the patient, performed the documentation and the assessment and plan as written. Number of minutes spent on the visit: 20m.
--- NOTE | 2025-03-17 07:57 | P.DS ---
Providers Date of admission: 03/16/25 Expected date of discharge: 03/17/25 Attending physician: Kelton Mckeon DO Consults: 03/16/25 11:57 Consult Physician Routine Consulting Provider: Malu Zacarias Reason/Comments: medical management Do you want consulting provider notified?: Yes Primary care physician: [facility] Course: Hospital Course: The patient was evaluated preoperatively and found to have the diagnosis of C5- C7 spondylosis with stenosis. They underwent appropriate preoperative care and were willing to undergo the intended procedure. They underwent a successfulC7 ACDF, were recovered appropriately and sent to the floor. While on the floor they worked with physical therapy, occupational therapy and nursing to enhance their recovery experience. Their pain was well controlled through their stay and they were started on appropriate medications, DVT ppx modalities, activity and dietary needs. Daily labs were monitored closely, and transfusions were only used when necessary. Medicine as well as other consulting services have made their input and have helped with our team approach and multidisciplinary care. PT milestones have been met and passed and they have made the recommendation of home for this patient and treating providers agree with this care path. The patient will be discharged home with appropriate medications, instructions and follow-up information and in stable condition. Patient Condition at Discharge: Good Plan - Discharge Summary Discharge Rx Participant: No New Discharge Prescriptions: New cefaDROXiL [Duricef] 500 mg PO Q12HR 5 Days #10 cap Naproxen [Naprosyn] 500 mg PO BID 14 Days #28 tablet Sennosides/Docusate Sodium [Senna Plus 8.6-50 mg Tablet] 2 each PO DAILY PRN #20 tab PRN Reason: Constipation Cyclobenzaprine [Flexeril] 10 mg PO TID PRN #40 tab PRN Reason: Muscle Spasm oxyCODONE HCL [OxyIR] 5 mg PO Q6H PRN #20 tab PRN Reason: Pain oxyCODONE-APAP 10-325MG [Percocet 10-325 mg] 1 tab PO Q4HR PRN #40 tab PRN Reason: Pain No Action Levothyroxine Sodium [Levoxyl] 25 mcg PO QAM lisinopriL [Zestril] 10 mg PO QAM Gabapentin [Neurontin] 800 mg PO TID tiZANidine [Zanaflex] 4 mg PO TID PRN PRN Reason: Muscle Spasm Rosuvastatin [Crestor] 10 mg PO DAILY Zolpidem Tartrate [Ambien Cr] 12.5 mg PO HS PRN PRN Reason: Insomnia Venlafaxine HCl ER [Effexor Xr] 150 mg PO DAILY oxyCODONE-APAP 10-325MG [Percocet 10-325 mg] 1 tab PO Q6HR PRN PRN Reason: Pain Dextroamphetamine/Amphetamine [Adderall] 20 mg PO BID Discharge Medication List Levothyroxine Sodium [Levoxyl] 25 mcg PO QAM 04/12/15 [History] lisinopriL [Zestril] 10 mg PO QAM 04/14/19 [History] Dextroamphetamine/Amphetamine [Adderall] 20 mg PO BID 01/27/25 [History] Gabapentin [Neurontin] 800 mg PO TID 01/27/25 [History] Rosuvastatin [Crestor] 10 mg PO DAILY 01/27/25 [History] Venlafaxine HCl ER [Effexor Xr] 150 mg PO DAILY 01/27/25 [History] oxyCODONE-APAP 10-325MG [Percocet 10-325 mg] 1 tab PO Q6HR PRN 01/27/25 [Histo ry] tiZANidine [Zanaflex] 4 mg PO TID PRN 01/27/25 [History] Zolpidem Tartrate [Ambien Cr] 12.5 mg PO HS PRN 03/15/25 [History] Cyclobenzaprine [Flexeril] 10 mg PO TID PRN #40 tab 03/17/25 [Rx] Naproxen [Naprosyn] 500 mg PO BID 14 Days #28 tablet 03/17/25 [Rx] Sennosides/Docusate Sodium [Senna Plus 8.6-50 mg Tablet] 2 each PO DAILY PRN #20 tab 03/17/25 [Rx] cefaDROXiL [Duricef] 500 mg PO Q12HR 5 Days #10 cap 03/17/25 [Rx] oxyCODONE HCL [OxyIR] 5 mg PO Q6H PRN #20 tab 03/17/25 [Rx] oxyCODONE-APAP 10-325MG [Percocet 10-325 mg] 1 tab PO Q4HR PRN #40 tab 03/17/25 [Rx] Follow up Appointment(s)/Referral(s): Joe Avitia DO [Primary Care Provider] - 1 Week Kelton Mckeon DO [Doctor of Osteopathic Medicine] - 2 Weeks Activity/Diet/Wound Care/Special Instructions: Spine Discharge and Recovery Instructions Date of Surgery: 03/16/2025 Diagnosis: Cervical spondylosis with stenosis Procedure: C5-C7 ACDF Medications: See medication list All medication refills should be obtained through your primary care doctor or your clinic spine surgeon. Please discuss prescription refills at your follow up appointment. Do not call the hospital for medication refills. Activity: Encourage ambulation with assist of walker, Up and about 6-8x daily PT/OT daily work on balance, strength and mobility Up in chair with all meals Shower daily Brace: Use brace when up and about, do not wear in bed or shower Dressing: Leave your dressing in place for a total of 3 days post operatively. Then you may remove your dressing and leave open to air. Keep the area clean and if not able to keep area clean, then cover with sterile gauze and tape. Showering: You may shower 3 days after your procedure allowing soap and water to run over incision. Do not scrub. Do not soak. Blot dry. Follow up: Please confirm a follow up appointment with your surgeon 2 weeks post operatively. Please make an appointment to follow up with your PCP in 1-2 weeks after surgery for evaluation '3 phase, 3-week plan' POST OP WEEKS 1-3 1. Lifting/carrying/pushing/pulling limited to less than 5 pounds. 2. Do not sit for longer than 15 minutes at one time. Get up and walk around. Prolonged sitting is NOT advised. If you lay down, see if you can tolerate laying down on you front (belly side) 3. Walk for periods of 15 minutes = 1 mile but no longer; do it multiple times times each day. 4. Ice your low back after activity. POST OP WEEKS 3-6 1. Lifting limited to less than 20 pounds. 2. Do not sit for longer than 30 minutes at a time. Frequently change positions. Use a sit-to stand workstation or take frequent breaks from sitting if you have returned to work. 3. Walk for 30 minutes each day. If possible, do these three or more times a day POST OP WEEKS 6+ At your 6-week appointment we will give you a physical therapy referral to focus on a core stabilization and strengthening program. You should also work on leg & buttock strengthening, hamstring & quadriceps stretching, and continue a low impact aerobic activity program such as swimming, walking, or riding a stationary bicycle. During the initial 6 weeks after your surgery, you are at the highest risk of re-injuring your spine. You should generally avoid BLT's (bending, lifting and twisting combination motions) and follow the above guidelines to reduce the chance of reinjury. You can anticipate post op appointments in our office at approximately 3 weeks and 6 weeks after your surgery. INCISION CARE: If your incision is not draining you do NOT need to cover it with a dressing. Keep your incision clean, dry and intact. In most cases, we apply skin glue, matt or sutures to the incision at the time of surgery. This will be like a crust or have the appearance of a scab and will fall off in time on its own. The stitches or matt need to be removed at 3 weeks post op appointment. You may begin to shower 3 days after surgery (this allows the glue to velez well). However, please avoid scrubbing the incision site or peeling off any of the skin glue. This will ensure optimal healing of your incision. Also, during this time avoid soaking the incision area in water - this includes swimming pools, hot tubs or baths. No ointments, lotions or oils on the incision until your surgeon allows. Leave matt, sutures or glue in place. Neurological dysfunction that comes on suddenly can also be a sign of a stroke. Below some common symptoms of a stroke are listed: B - balance difficulty such as sudden onset walking or leaning to one side - NEW E - eye problem such as sudden double vision or trouble seeing on one side - NEW F - Facial weakness or numbness on one side - NEW A - Arm or leg weakness or numbness on one side - NEW S - Slurred speech or difficulty with word finding - NEW T - Time is BRAIN! Call 911 as soon as you recognize these symptoms Diet: Consume a regular diet rich in vegetables and lean protein such as chicken or fish. You should consume in a ratio of approximately 20% fats|40% carbohydrates|40%protein. Vegetables, sweet potatoes, brown rice or quinoa are examples of good carbohydrates. Chips, white bread, cookies and sweets/sugar are examples of bad carbohydrates. Limit your bad carbs, go wild with good carbs. "Life's Simple 7" Guidelines as per [place] [employer] These will help you reclaim your life after surgery and hand drawer in helper in your recovery, keeping in mind your restrictions. (1) Get Active. Physical activity can help people lose weight, control high blood pressure and cholesterol, feel emotionally better, and sleep better. (2) Control Cholesterol. Avoid a diet high in saturated fat, trans fat, & cholesterol. Limit whole milk & cream, ice cream, butter, egg yolks, processed meats (like sausage and hot dogs), and fatty meats. Choose healthy foods that are low in saturated fat, trans fat and cholesterol which include: Fruits and vegetables, fiber rich grain products (like whole grain pasta and brown rice), lean meat such as chicken, fish, nuts, seeds, and legumes. (3) Eat Better. Eat small portions. Shop at the grocery with a list and do not stray from it. Tips for a healthy diet include: Limit sodium intake to less than 1500mg daily, avoid prepackaged, processed, and fast foods, choose a diet rich in fruits, vegetables, and whole grain, high fiber foods, and limit saturated & cholesterol in your diet. (4) Manage Blood Pressure. If you have high blood pressure, you should have a cuff at home so that you can check your blood pressure regularly. Be sure you have a good cuff. An arm one is generally better than a wrist one. Bring the cuff to a doctor's appointment to validate that the measurements that your cuff are taking are accurate. Take your blood pressure twice daily when you are sitting down and relaxing. Record the numbers in a log and bring this log with you to your doctors' appointments. (5) Lose Weight if your BMI is above 25. A healthy BMI is between 19-25. To calculate Your BMI, you may use a Standard BMI Calculator on the NIH BMI website: <www.nhlbi.nih.gov/guidelines/obesity/BMI/bmicalc.htm>. Weigh oneself daily. If you are overweight, set a goal to lose weight. A pound a week loss if needed is a good target. (6) Reduce Blood Sugar. Limit foods and liquids with "added sugars." (Added sugars include sucrose, fructose, glucose, maltose, dextrose, high fructose corn syrup, corn syrup, concentrated fruit juice and honey). (7) Stop Smoking. If you smoke, quitting smoking is one of the best things that you can do for your health. Smoking increases your risk of heart attack, stroke, and peripheral vascular disease, which is a build-up of plaque in your arteries. Please discard all the cigarettes and lighters in your house. Have a plan for what you will do when you have the urge to smoke. Direct and second- hand smoke shortens your life as well as the lives of your family, friends and others around you. For your health and the health of those around you, please consider quitting! Proper Bending Body Mechanics: Maintain a wide stance with one foot slightly in front of the other. Keep your back straight. Bend utilizing the strength in your hips and knees. Do not bend at the waist. Maintain the lifted object at your waist-level close to your body. Avoid lifting weight that causes immediately pain or pain anywhere in the body afterwards. Smoking/Nicotine If there was ever one thing that you could do to increase your overall health, decrease your risk of cardiovascular problems by about 39% the second you make the choice, it is to STOP SMOKING. Your body's most instant gratification is the second you stop smoking. We have all heard the studies, read the articles but it is true, smoking is extremely bad for your overall health, and moreover it is detrimental to your bone health. Nicotine, IN ANY FORM, kills bone cells, prevents your body from healing fractures, and significantly prolongs healing after surgery. In spine surgery specifically, it increases your risk of not healing your bones to create a fusion and increases your risk of having a revision surgery due to this up to 60%. I know it is hard. I know it feels impossible. But there are ways. Take control of your life. We are here to help you through it. And when you are ready, ask us and we can direct you to help if you desire. Use the START Plan to Quit Smoking (please visit the Helpguide.org website listed below for more information): S = Set a quit date. Choose a date within the next 2 weeks, so you have enough time to prepare without losing your motivation to quit. If you mainly smoke at work, quit on the weekend, so you have a few days to adjust to the change. T = Tell family, friends, and co-workers that you plan to quit. Let your friends and family in on your plan to quit smoking and tell them you need their support and encouragement to stop. Look for a quit tristian who wants to stop smoking as well. You can help each other get through the rough times. A = Anticipate and plan for the challenges you'll face while quitting. Most people who begin smoking again do so within the first 3 months. You can help yourself make it through by preparing ahead for common challenges, such as nicotine withdrawal and cigarette cravings. R = Remove cigarettes and other tobacco products from your home, car, and work. Throw away all your cigarettes (no emergency pack!), lighters, ashtrays, and matches. Wash your clothes and freshen up anything that smells like smoke. Shampoo your car, clean your drapes and carpet, and steam your furniture. T = Talk to your doctor about getting help to quit. Your doctor can prescribe medication to help with withdrawal and suggest other alternatives. If you can't see a doctor, you can get many products over the counter at your local pharmacy or grocery store, including the nicotine patch, nicotine lozenges, and nicotine gum. Resources for Quitting Smoking: <https://www.[place].gov/documents/[facility]/Quit_Tobacco_Resources_for_patients_313 480_7.pdf> Supplementation: Take recommended dosages of Vitamin D and Calcium to help fortify your bones and help them to heal. See your health maintenance packet for dosages and recommended levels. DVT/VTE prophylaxis: You will be given compression stockings from the hospital. Wear these daily for the first two weeks after surgery. You may take them off at night. You may be prescribed a medication to help thin your blood. Take this as directed. If you are not prescribed this medication, early and frequent ambulation has been shown to be the best prophylaxis to deep vein thrombosis and sequelae related to this event. Discharge Disposition: HOME SELF-CARE
[2025-03-17 08:00] LABS: Basophils # (A) 0.04 X 10*3/uL (0.00-0.10); Basophils % (A) 0.3 %; Eosinophils # (A) 0.01 X 10*3/uL (0.04-0.35); Eosinophils % (A) 0.1 %; HCT 38.8 % (37.2-46.3); HGB 13.2 g/dL (12.0-15.0); Immature Grans, Automated 0.40 %; Lymphocytes # (A) 2.07 X 10*3/uL (0.90-5.00); Lymphocytes % (A) 14.2 %; MCH 30.6 pg (27.0-32.0); MCHC 34.0 g/dL (32.0-37.0); MCV 90.0 FL (80.0-97.0); Monocytes # (A) 0.68 X 10*3/uL (0.20-1.00); Monocytes % (A) 4.7 %; NRBC Per 100 WBC 0 X 10*3/uL (0.00-0.01); Neutrophils # (A) 11.67 X 10*3/uL (1.80-7.70); Neutrophils % (A) 80.3 %; Platelet Count 277 X 10*3/uL (140-440); RBC 4.31 X 10*6/uL (4.10-5.20); RDW 12.5 % (11.5-14.5); WBC 14.53 X 10*3/uL (4.50-10.00)
[2025-03-17] MEDS: VENLAFAXINE HCL ER 150 MG CAP PO SCH (08:01)
[2025-03-17] MEDS: SENNOSIDES-DOCUSATE SODIUM 1 EACH TAB PO SCH (08:01)
[2025-03-17] MEDS: ATORVASTATIN 20 MG TAB PO SCH (08:01)
[2025-03-17 08:15] LABS: ALT 17 U/L (8-44); AST 21 U/L (13-35); Albumin 4.4 g/dL (3.8-4.9); Albumin/Globulin Ratio 1.83 Ratio (1.60-3.17); Alkaline Phosphatase 57 U/L (41-126); Anion Gap 13.10 mmol/L (4.00-12.00); BUN/Creat Ratio 13.25 Ratio (12.00-20.00); Blood Urea Nitrogen 10.6 mg/dL (9.0-27.0); Calcium 9.1 mg/dL (8.7-10.3); Carbon Dioxide 25.9 mmol/L (21.6-31.8); Chloride 102 mmol/L (96-109); Globulin 2.4 g/dL (1.6-3.3); Glucose 103 mg/dL (70-110); Magnesium 1.7 mg/dL (1.5-2.4); Potassium 3.7 mmol/L (3.5-5.5); Sodium 141 mmol/L (135-145); Total Protein 6.8 g/dL (6.2-8.2)
[2025-03-17 08:49] VITALS: BP 170/95; PULSE 65; RESP 18; TEMP 98.4
--- NOTE | 2025-03-17 10:33 | CT ---
EXAMINATION TYPE: CT cervical spine wo con DATE OF EXAM: 03/17/2025 10:08 AM COMPARISON: None. CLINICAL INDICATION: Female, 34 years old with history of s/p cervical fusion; S/P Cervical Fusion TECHNIQUE: Axial CT images from the skull base to the inferior aspect of T2 we obtained without intra venous contrast. Coronal and sagittal reformatted images were also reviewed. Contrast used: mL of , (if blank None) Oral contrast used: (if blank None) CT DLP: 756.3 mGycm, Automated exposure control for dose reduction was used. FINDINGS: Fracture: None. Osseous structures: Postsurgical changes with anterior fixation hardware at C5-C6 and C6-C7. Hardware appears intact. Serpiginous gas in the surgical bed compatible recent surgery. Mild multilevel facet arthropathy and degeneration changes are seen throughout the spine. Vertebral alignment: Alignment within normal limits. Spinal canal/Neural Foramina: No evidence of significant spinal canal narrowing. No evidence for sign ificant neural foraminal stenosis. Neck soft tissues: Prevertebral soft tissues are within normal limits. Other: The airway is patent. The lung apices are clear. IMPRESSION: 1. Postsurgical changes with hardware in appropriate position.. No evidence of cervical spine fractur e. 2. Mild multilevel degenerative disc disease. [facility], , 03/17/2025 10:30 AM
== END 2025-03-17 11:30 | disposition home or self-care (01) ==
LOC: OR 08:22 → 4SSUR 11:42 → OR 03-17 11:30
PROVIDERS: ATTEND Orthopaedic Surgery
DX: M47.22 Other spondylosis with radiculopathy, cervical region (principal); M48.02 Spinal stenosis, cervical region; M50.122 Cervical disc disorder at C5-C6 level with radiculopathy; M25.78 Osteophyte, vertebrae; I10 Essential (primary) hypertension; E78.5 Hyperlipidemia, unspecified; E66.9 Obesity, unspecified; E03.9 Hypothyroidism, unspecified; E28.2 Polycystic ovarian syndrome; F17.210 Nicotine dependence, cigarettes, uncomplicated; Z68.25 Body mass index [BMI] 25.0-25.9, adult; Z79.890 Hormone replacement therapy; Z79.899 Other long term (current) drug therapy; Z98.1 Arthrodesis status; Z86.14 Personal history of Methicillin resistant Staphylococcus aureus infection
CPT/HCPCS: 97161; 81025; 80053; 83735; 85025; 72040; 72125; 22551; 22552; 20936; 22853; 22845; L0120; C1713; J2250; J0360; J1100; J0690 ×2; J2405; J1171 ×3; J1885 ×2; J1308